=== PATIENT | male | born 1970 | race Caucasian/White ===

== ENCOUNTER 2018-01-01 13:19 | Inpatient (IN) | payer OTHER ==
[~2018-01-01] VITALS: Ht 170.2 cm; Wt 106.6 kg
[2018-01-01 13:33] VITALS: BP_SYST 148
--- NOTE | 2018-01-01 13:39 | NUR ---
Ambulatory to bed 8
--- NOTE | 2018-01-01 14:00 | NUR ---
PT AAOx4 presents to ED c/o pain to bilateral feet r/t diabetic foot ulcer. Pt states "it has gotten worse. I put cream on it, but it hasn't gone away." Swelling and redness noted to soles of bilateral feet. No other injuries/complaints per pt/noted. Will continue to monitor.
--- NOTE | 2018-01-01 14:08 | NUR ---
ER Dr. Martinez at bedside examining patient.
[2018-01-01] MEDS ORDERED: CLINDAMYCIN 600 MG in D5W 50 ML IV ONE (14:15)
[2018-01-01] MEDS ORDERED: LEVOFLOXACIN 500 MG/D5W 100 ML IV ONE ×2 (14:15→22:41)
[2018-01-01] MEDS ORDERED: NACL 0.9% IV ONE (14:15)
[2018-01-01] MEDS ORDERED: VANCOMYCIN HCL 1,000 MG in NS 250 ML IV ONE (14:15)
--- NOTE | 2018-01-01 14:15 | NUR ---
Radiology at bedside for CXR
[2018-01-01] MEDS ORDERED: CLINDAMYCIN 600 mg/50mL D5W 50 ML IV ONE (14:41)
[2018-01-01 15:01] LABS: BASOPHILS # (AUTO) 0.3 K/uL (0.0-0.2); MONOCYTES # (AUTO) 0.7 K/uL (0.0-1.0); RED BLOOD CELL COUNT(AUTO) 4.18 MIL/uL (4.2-6.2)
[2018-01-01 15:07] LABS: EOSINOPHILS # (AUTO) 0.1 K/uL (0.0-0.4); EOSINOPHILS % (AUTO) 0.5 % (0.0-4.0); HEMATOCRIT 34.9 % (36-54); HEMOGLOBIN 11.2 g/dL (14.0-18.0); LYMPHOCYTES # (AUTO) 1.3 K/uL (1.0-5.5); LYMPHOCYTES % (AUTO) 10.3 % (20.5-51.5); MEAN CORPUSCULAR HEMOGLOBIN 27 pg (27-31); MEAN CORPUSCULAR HGB CONC 32 % (32-36); MEAN CORPUSCULAR VOLUME 84 fL (79.0-98.0); MONOCYTES % (AUTO) 5.4 % (1.7-9.3); NEUTROPHILS # (AUTO) 10.7 K/uL (1.8-7.7); NEUTROPHILS % (AUTO) 81.8 % (40.0-70.0); PLATELET COUNT (AUTO) 317 K/uL (130-430); RED CELL DISTRIBUTION WIDTH 11.5 % (9.0-15.0); WHITE BLOOD COUNT (AUTO) 13.1 K/uL (4.8-10.8)
[2018-01-01 15:10] LABS: CALCIUM 9.5 mg/dL (8.4-11.0); CREATININE 0.93 mg/dL (0.55-1.30); POTASSIUM 4.6 mmol/L (3.5-5.1)
[2018-01-01 15:15] LABS: ALBUMIN 2.8 g/dL (3.4-4.8); TOTAL BILIRUBIN 0.5 mg/dL (0.0-1.0)
[2018-01-01] MEDS ORDERED: MULT-1117 PO (15:30)
[2018-01-01] MEDS ORDERED: INSU100V SQ (15:30)
[2018-01-01] MEDS ORDERED: DIF100 PO (15:30)
[2018-01-01] MEDS ORDERED: [UNRECOGNIZED DRUG - SUPPLY] IM (15:30)
[2018-01-01] MEDS ORDERED: ESCI10TA PO (15:30)
[2018-01-01] MEDS ORDERED: SILV50CR43 TP (15:30)
[2018-01-01] MEDS ORDERED: MUPIROCIN 2% TP (15:30)
[2018-01-01] MEDS ORDERED: GLU500 PO (15:30)
[2018-01-01] MEDS ORDERED: ASPI-1153 PO (15:30)
--- NOTE | 2018-01-01 15:31 | NUR ---
Medication reconciliation completed with information provided by pharmacy. Any prior medication reconciliation on file was reviewed and corrected.
--- NOTE | 2018-01-01 15:41 | NUR ---
Pt states he is allergic to Vancomycin; pt denies any immediate reaction, but states "I lose all of my white blood cells when I take it. I don't want it." Dr. Martinez notified. Vancomycin to be DC'd. Addendum: 01/01/18 at 1542 by [email or web address] *Vancomycin to be canceled.
[2018-01-01 16:09] LABS: BILIRUBIN,URINE NEGATIVE (NEGATIVE); BLOOD, URINE NEGATIVE (NEGATIVE); CLARITY/URINE CLEAR (CLEAR); COLOR,URINE YELLOW (YELLOW); GLUCOSE,URINE 3+ (NEGATIVE); KETONES,URINE 1+ (NEGATIVE); LEUKOCYTE ESTERASE ,URINE NEGATIVE (NEGATIVE); NITRITE, URINE NEGATIVE (NEGATIVE); PROTEIN URINE TRACE (NEGATIVE)
[2018-01-01 16:16] LABS: BACTERIA,URINE FEW /HPF (None Seen); HYALINE CASTS, URINE 0-10 /LPF (None Seen); MUCUS,URINE 1+ /LPF (None Seen); RBC,URINE NONE SEEN /HPF (0-3); WBC,URINE 0-3 /HPF (0-3)
--- NOTE | 2018-01-01 16:46 | NUR ---
ADMISSION NOTE Received patient from ER via leonarda, received report from KARTHIK VIRK. Patient admitted with diagnosis of OSTEOMYELITIS/ CELLULITIS. Patient oriented to hospital routine, call light, toileting and safety-patient verbalized understanding.
--- NOTE | 2018-01-01 16:57 | NUR ---
Patient will be admitted [facility]. Admitted to Medsurg unit. Will go to room 133B. Summary report printed. Report will be given at bedside.
[2018-01-01 17:08] VITALS: BP_SYST 126; BP_SYST 129
[2018-01-01] MEDS ORDERED: BUPIVACAINE /PF 0.75% 10 ML VIAL INJ ONE (17:30)
[2018-01-01] MEDS ORDERED: NS 1000 ML IV.SOLN IV ONE (17:30)
[2018-01-01] MEDS ORDERED: MIDAZOLAM HCL 5 MG/5 ML VIAL IVP ONE (17:30)
--- NOTE | 2018-01-01 17:45 | NUR ---
Rounds: Patient verbalized that he does not want any informations released to his parents. He also verbalized his frustrations and disappointments with his parents. He stated that he want to make his health his priority now.
--- NOTE | 2018-01-01 18:29 | NUR ---
Accucheck: Bloodsugar = 255mg/dl. Covered with 6 units Regular insulin SQ given on the left abomen lower quadrant. Dose was verified with another RN before administration.
--- NOTE | 2018-01-01 18:41 | NUR ---
MD notification: Informed Dr. Wolf about patient's non productive cough, new order received.
[2018-01-01 19:29] VITALS: BP_SYST 131
--- NOTE | 2018-01-01 19:29 | NUR ---
Opening Note Bedside SBAR report received from dayshift RN. Patient is resting, eyes closed with no distress noted. IV site noted to LAC 20G, infusing remainder of ER bolus. Introduced myself, updated whiteboard, discussed plan of care. Bed to lowest position, 2 upper side rails raised bilaterally, call light within reach, bed alarm not activated per patient request. Will continue to monitor patient.
--- NOTE | 2018-01-01 21:11 | NUR ---
Blood Glucose : 244 (4U regular insulin correction given per physician ordered sliding scale) Educated patient on signs/symptoms of hypoglycemia. Patient verbalizes understanding.
[2018-01-01] MEDS: INSULIN REGULAR, HUMAN 100 UNITS/ML, 10 ML VIAL (novoLIN R) SUBCUT PRN (21:14)
[2018-01-01] MEDS ORDERED: HYDROcodone/ACETAMIN 5-325 MG TAB (NORCO/ VICODIN) PO PRN (22:15)
[2018-01-01] MEDS ORDERED: ONDANSETRON HCL 4 MG/2 ML VIAL IVP PRN (22:15)
[2018-01-01] MEDS ORDERED: HYDROcodone/ACETAMIN 10-325 MG TAB PO PRN (22:15)
[2018-01-01] MEDS ORDERED: ENOXAPARIN SODIUM 40 MG/0.4 ML SYRINGE SUBCUT SCH (22:30)
--- NOTE | 2018-01-01 22:36 | NUR ---
Dr. Wolf is in with patient discussing plan of care.
[2018-01-01] MEDS ORDERED: CLINDAMYCIN 600 mg/50mL D5W 100 ML IV ONE (22:41)
[2018-01-01 22:50] VITALS: BP_SYST 132
[2018-01-01] MEDS: ACETAMINOPHEN 325 MG TABLET PO PRN (22:55)
--- NOTE | 2018-01-01 22:55 | NUR ---
Temperature: 100.8 - Administered Tylenol 650mg as ordered by physician for fever. Applied cold ice packs bilaterally to axillary. Will follow up to ensure effective temperature management.
[2018-01-01] MEDS: CLINDAMYCIN 600 MG in D5W 50 ML IV SCH (23:00)
--- NOTE | 2018-01-01 23:00 | NUR ---
Called Dr. Wolf in 's lounge and advised of patient's elevated temperature. No further orders received.
--- NOTE | 2018-01-01 23:55 | NUR ---
Temperature: 97.7 - temperature management effective, will continue to monitor patient.
[2018-01-02] VITALS (7 sets, daily range): BP systolic 115–141
--- NOTE | 2018-01-02 00:17 | NUR ---
Social Service Consult Ordered Patient says he temporarily lives with his parents. He says last time he had his toe amputated he was discharged to a convalescent home and his parents attempted to have him sign paperwork to give his rights away. He says he does not feel his parents will help him when he is discharged and he does not trust them, but has no where else to go. He is also concerned with losing his job during this hospital stay and has no resources to fall back on. He is requesting social service consult to see what they can help with. He is adamant on not going back to the convalescent facility that he was sent to for his last recovery, but cannot remember the name of the facility.
[2018-01-02] MEDS: NACL 0.9% 1,000 ML IV SCH ×4 (00:29→23:26)
[2018-01-02] MEDS: LACTOBACILLUS RHAMNOSUS GG 1 CAP CAPSULE PO SCH ×3 (00:29→20:40)
--- NOTE | 2018-01-02 01:01 | NUR ---
Wound Care Left foot Cleansed both wound sites with normal saline. Patted dry. Applied optifoam non-adhesive to both sites and securely wrapped with gauze. Patient tolerated well and did not want to be medicated before wound care.
--- NOTE | 2018-01-02 01:25 | NUR ---
IV site is leaking. New IV site started to LFA 20G and was started by admitting RN, Madi.
--- NOTE | 2018-01-02 03:45 | NUR ---
Rounds Patient is resting comfortably with eyes closed and no distress noted. No shortness of breath and no labored breathing. IV site is clean/dry/intact with no signs of infiltration, infusing NS @ 100 ml/hr. Bed to lowest position, 2 upper side rails raised bilaterally, call light within reach, bed alarm activated. Will continue to monitor patient.
[2018-01-02] MEDS ORDERED: DEXTROSE 50% JECT 50 ML DISP.SYRIN IVP PRN (04:00)
--- NOTE | 2018-01-02 05:26 | NUR ---
Rounds Patient is resting, eyes closed and but easily arouses to light stimulation. Symmetric rise and fall of chest with non-labored respirations @ 16/min. IV site is clean/dry/intact with no signs of infiltration, infusing NS @ 100 ml/hr. Bed to lowest position, 2 upper side rails raised bilaterally, call light within reach, bed alarm activated. Will continue to monitor patient.
--- NOTE | 2018-01-02 05:39 | NUR ---
CONSULTATION PAGED/CALLED Reason for Consultation: CELLULITUS Person Who was Notified: MIMI Consulting Physician: DR. MARTINEZ; ONCALL- DR. ALEJANDRE Ordering Physician: DR. ETIENNE
--- NOTE | 2018-01-02 05:40 | NUR ---
CONSULTATION PAGED/CALLED Reason for Consultation: CELLULITES Person Who was Notified: MIMI Consulting Physician: DR. DEUTSCH Ordering Physician: DR. ETIENNE
[2018-01-02] MEDS: CLINDAMYCIN 600 MG in D5W 50 ML IV SCH ×4 (05:54→23:26)
--- NOTE | 2018-01-02 05:58 | NUR ---
Blood Glucose : 118 (No correction given per physician ordered sliding scale) Educated patient on signs/symptoms of hypoglycemia. Patient verbalizes understanding
[2018-01-02 06:52] LABS: BASOPHILS # (AUTO) 0.1 K/uL (0.0-0.2); BASOPHILS % (AUTO) 0.5 % (0.0-2.0); EOSINOPHILS # (AUTO) 0.1 K/uL (0.0-0.4); EOSINOPHILS % (AUTO) 1.3 % (0.0-4.0); HEMATOCRIT 34.5 % (36-54); LYMPHOCYTES # (AUTO) 1.4 K/uL (1.0-5.5); LYMPHOCYTES % (AUTO) 13.8 % (20.5-51.5); MEAN CORPUSCULAR HEMOGLOBIN 27 pg (27-31); MEAN CORPUSCULAR HGB CONC 32 % (32-36); MEAN CORPUSCULAR VOLUME 84 fL (79.0-98.0); MONOCYTES # (AUTO) 0.5 K/uL (0.0-1.0); MONOCYTES % (AUTO) 5.2 % (1.7-9.3); NEUTROPHILS % (AUTO) 79.2 % (40.0-70.0); PLATELET COUNT (AUTO) 269 K/uL (130-430); RED BLOOD CELL COUNT(AUTO) 4.12 MIL/uL (4.2-6.2); WHITE BLOOD COUNT (AUTO) 10.1 K/uL (4.8-10.8)
--- NOTE | 2018-01-02 07:20 | NUR ---
Closing Note Gave bedside sbar report to dayshift RNEl Patient is awake/alert/oriented, using telephone No distress noted at this time. Introduced patient to dayshift RN. All needs/expectations/interventions met by nightshift RN. Transfer of care successful.
[2018-01-02 07:21] LABS: INR 1.2 (0.80-1.20); PROTHROMBIN TIME 11.9 SECS (9.5-12.5)
[2018-01-02 07:34] LABS: ALBUMIN 2.4 g/dL (3.4-4.8); CALCIUM 9.1 mg/dL (8.4-11.0); CREATININE 0.77 mg/dL (0.55-1.30); FREE T4 (FREE THYROXINE) 0.8 ng/dL (0.6-1.6); POTASSIUM 4.1 mmol/L (3.5-5.1); THYROID STIMULATING HORMONE 0.75 uIu/mL (0.34-4.82); TOTAL BILIRUBIN 0.4 mg/dL (0.0-1.0)
[2018-01-02] MEDS: CITALOPRAM HYDROBROMIDE 20 MG TABLET PO SCH ×3 (09:00→09:13)
[2018-01-02] MEDS ORDERED: metFORMIN HCL 500 MG TABLET PO SCH (09:00)
[2018-01-02] MEDS: MULTIVITAMINS TAB 1 TABLET PO SCH (09:06)
[2018-01-02] MEDS: ASPIRIN 81 MG TABLET(ECOTRIN) PO SCH (09:07)
[2018-01-02] MEDS: metFORMIN HCL 500 MG TABLET PO SCH ×2 (09:07→17:19)
--- NOTE | 2018-01-02 09:10 | NUR ---
AM NOTES Patient awake, alert, orientedx4 laying in bed. No s/s of acute distress or SOB. No pain reported. Patient states he feels worried about "his parents wanting to sign his rights away" and wants to speak with social studies teacher. Patient oriented to room routine, bed in lowest position, call light within reach. Will cont. to monitor.
--- NOTE | 2018-01-02 09:45 | NUR ---
Dr. Wolf rounds assessed patient and beside, informed patient about plan of care and xray results, infection to the bone of his foot, patient very concerned about possible toe amputation, Dr. Wolf informed patient that the orthopaedic physician will be coming to see him and give him final say about amputation if needed, patient verbalized understanding.
--- NOTE | 2018-01-02 10:00 | NUR ---
Called Case Management patient has some concerns regarding insurance and discharge planning.
--- NOTE | 2018-01-02 10:05 | NUR ---
Psych consult called: for Dr. Argueta (Dr. Harris unit control clerk for weekend), regarding depression, ordered by Dr. Wolf, called exchange. Face sheet faxed to office at [phone]
[2018-01-02] MEDS: ACETAMINOPHEN 325 MG TABLET PO PRN (11:38)
[2018-01-02] MEDS: guaiFENesin/DEXTROMETHORPHAN 118 ML PO PRN ×2 (11:39→18:54)
[2018-01-02] MEDS: INSULIN REGULAR, HUMAN 100 UNITS/ML, 10 ML VIAL (novoLIN R) SUBCUT PRN ×2 (11:42→17:19)
--- NOTE | 2018-01-02 11:46 | NUR ---
FEVER Patient has a temperature of 101.9. Tylenol administered, cooling measures applied. Will cont. to monitor.
[2018-01-02] MEDS ORDERED: LORazepam 1 MG TABLET PO PRN (12:15)
--- NOTE | 2018-01-02 12:19 | NUR ---
MORNING MEDICATIONS Patient refused Celexa. Patient educated on indications, side effects and benefits of medication, patient verbalized understanding.
--- NOTE | 2018-01-02 13:11 | NUR ---
SEPSIS Patient meets SIRS criteria for sepsis (pulse in 120's, fever of 101.0, tylenol given, fever increased to 103.0.) Dr. Aguirre at nurses station informed of patient's status. Dr. Aguirre to place orders. Dr. Wolf notfied, no change in orders. Will cont. to monitor.
--- NOTE | 2018-01-02 13:45 | NUR ---
RN rounds/Temp re-check patient resting in bed, family at bedside, re-checked patient's temperature now 100.5, patient does not want cooling measures as offered, patient is in stable condition, bed in lowest position, two side rails up, call light within reach, fall and aspiration precautions in place.
--- NOTE | 2018-01-02 14:06 | NUR ---
PSYCH CONSULT Dr. Harris at bedside.
--- NOTE | 2018-01-02 14:36 | NUR ---
ANXIOUS Ativan 1mg PO given for anxiousness. Will cont. to monitor.
--- NOTE | 2018-01-02 14:56 | NUR ---
WOUND CARE Wound care done on bilateral feet. Patient tolerated procedure well.
[2018-01-02] MEDS ORDERED: LEVOFLOXACIN 500 MG/D5W 100 ML IV SCH ×2 (16:00→21:00)
[2018-01-02] MEDS: PIPERACILLIN/TAZO 2.25G/DEX-IS 50 ML IV SCH ×2 (18:07→23:26)
--- NOTE | 2018-01-02 18:10 | NUR ---
MEDICATION ADMINISTRATION Accucheck 241, 4 units of insulin given for correction needed per physician ordered sliding scale. IVPB antibiotics hung, left 20g IV site patent, intact, dressing is dry. Patient educated on indication, side effects and benefits of antibiotic therapy, patient verbalized understanding. Will cont. to monitor.
--- NOTE | 2018-01-02 18:35 | NUR ---
CLOSING NOTES Patient is laying in bed resting. No s/s of distress or SOB noted. No pain reported. All needs met throughout shift. Safety and fall precautions maintained. Left 20g IV site patent, intact, dressing is dry. Bed in lowest position, call light within reach. Will endorse to oncoming RN.
--- NOTE | 2018-01-02 19:14 | NUR ---
Opening Note Bedside SBAR report received from [place] RN. Patient is resting, eyes closed with no distress noted. No IV site to assess at this time, per sherita RN it dislodged as patient attempted to get out of bed. Introduced myself, updated whiteboard, discussed plan of care. Bed to lowest position, 2 upper side rails raised bilaterally, call light within reach, bed alarm not activated per patient request. Will continue to monitor patient.
--- NOTE | 2018-01-02 20:40 | NUR ---
Pain Medication Patient complains of 7/10 aching bilat foot pain. Administered Cope 10mg as ordered for severe pain. Will follow up to ensure effective pain management.
[2018-01-02] MEDS: ENOXAPARIN SODIUM 40 MG/0.4 ML SYRINGE SUBCUT SCH (20:41)
--- NOTE | 2018-01-02 20:44 | NUR ---
Blood Glucose : 126 (No correction given per physician ordered sliding scale) Educated patient on signs/symptoms of hypoglycemia. Patient verbalizes understanding.
--- NOTE | 2018-01-02 22:20 | NUR ---
Rounds Patient is awake/alert/oriented, watching television. Symmetric rise and fall of chest with non-labored respirations @ 16/min. IV site is clean/dry/intact with no signs of infiltration, infusing NS @ 100 ml/hr. Bed to lowest position, 2 upper side rails raised bilaterally, call light within reach, bed alarm activated. Will continue to monitor patient.
[2018-01-03 01:25] VITALS: BP_SYST 110
--- NOTE | 2018-01-03 02:59 | NUR ---
Rounds Patient is resting, eyes closed and but easily arouses to light stimulation. Symmetric rise and fall of chest with his respirations @ 18/min. IV site is clean/dry/intact with no signs of infiltration, infusing NS @ 100 ml/hr as ordered. Bed to lowest position, 2 upper side rails raised bilaterally, call light within reach, bed alarm activated. Will continue to monitor patient.
--- NOTE | 2018-01-03 04:27 | NUR ---
Rounds Patient is resting comfortably with eyes closed and no distress noted. No shortness of breath and no labored breathing. IV site is clean/dry/intact with no signs of infiltration, infusing NS @ 100 ml/hr as ordered. Patency verified with good blood return/flush. Bed to lowest position, 2 upper side rails raised bilaterally, call light within reach, bed alarm activated. Will continue to monitor patient.
[2018-01-03] MEDS: CLINDAMYCIN 600 MG in D5W 50 ML IV SCH ×4 (05:30→23:52)
[2018-01-03] MEDS: PIPERACILLIN/TAZO 2.25G/DEX-IS 50 ML IV SCH ×3 (05:30→17:55)
[2018-01-03] MEDS: NACL 0.9% 1,000 ML IV SCH ×3 (05:30→23:52)
[2018-01-03] MEDS: INSULIN REGULAR, HUMAN 100 UNITS/ML, 10 ML VIAL (novoLIN R) SUBCUT PRN ×4 (06:00→21:48)
--- NOTE | 2018-01-03 06:01 | NUR ---
Blood Glucose : 180 (4U regular insulin correction given per physician ordered sliding scale) Educated patient on signs/symptoms of hypoglycemia. Patient verbalizes understanding. Addendum: 01/03/18 at 0605 by Marie Tinsley RN 2U administered per correction scale
[2018-01-03] MEDS: guaiFENesin/DEXTROMETHORPHAN 118 ML PO PRN (06:26)
--- NOTE | 2018-01-03 06:26 | NUR ---
Patient complains of cough, administered Robitussin as ordered for cough. Will follow up to ensure effective management.
--- NOTE | 2018-01-03 07:10 | NUR ---
Closing Note Patient is awake/alert/oriented No distress noted at this time. All needs/expectations/interventions met by nightshift RN. Transfer of care successful.
[2018-01-03 07:11] LABS: BASOPHILS % (AUTO) 0.6 % (0.0-2.0); EOSINOPHILS # (AUTO) 0.1 K/uL (0.0-0.4); EOSINOPHILS % (AUTO) 1.8 % (0.0-4.0); HEMATOCRIT 29.6 % (36-54); LYMPHOCYTES # (AUTO) 1.3 K/uL (1.0-5.5); LYMPHOCYTES % (AUTO) 20.4 % (20.5-51.5); MEAN CORPUSCULAR HEMOGLOBIN 26 pg (27-31); MEAN CORPUSCULAR HGB CONC 30 % (32-36); MEAN CORPUSCULAR VOLUME 85 fL (79.0-98.0); MONOCYTES # (AUTO) 0.5 K/uL (0.0-1.0); MONOCYTES % (AUTO) 8.8 % (1.7-9.3); NEUTROPHILS # (AUTO) 4.2 K/uL (1.8-7.7); NEUTROPHILS % (AUTO) 68.4 % (40.0-70.0); PLATELET COUNT (AUTO) 245 K/uL (130-430); RED CELL DISTRIBUTION WIDTH 11.9 % (9.0-15.0); WHITE BLOOD COUNT (AUTO) 6.1 K/uL (4.8-10.8)
[2018-01-03 07:51] LABS: CALCIUM 8.5 mg/dL (8.4-11.0); CREATININE 0.92 mg/dL (0.55-1.30); POTASSIUM 3.6 mmol/L (3.5-5.1)
[2018-01-03 08:00] VITALS: BP_SYST 117
--- NOTE | 2018-01-03 08:00 | NUR ---
Initial notes: Patient awake, alert and oriented. Stable. Discussed plan of care. I.V. access patent running on NACL 100 cc/hr. Discussed plan of care. Safety measures in placed. Call light within reach. report received at bedside.
[2018-01-03] MEDS: metFORMIN HCL 500 MG TABLET PO SCH ×2 (08:37→17:54)
[2018-01-03] MEDS: ASPIRIN 81 MG TABLET(ECOTRIN) PO SCH (08:37)
[2018-01-03] MEDS: MULTIVITAMINS TAB 1 TABLET PO SCH (08:38)
[2018-01-03] MEDS: CITALOPRAM HYDROBROMIDE 20 MG TABLET PO SCH (08:38)
[2018-01-03] MEDS: LACTOBACILLUS RHAMNOSUS GG 1 CAP CAPSULE PO SCH ×2 (08:38→21:30)
--- NOTE | 2018-01-03 08:44 | NUR ---
ROUNDS: Patient very talkative. Refused citalopram and hydroxyzine pamoate. He said "he doesn't need it."
--- NOTE | 2018-01-03 12:17 | NUR ---
rounds: patient had a visitors, he was talking to them. no distress noted.
[2018-01-03 12:20] VITALS: BP_SYST 125
--- NOTE | 2018-01-03 13:40 | NUR ---
rounds: patient resting. no distress noted.
--- NOTE | 2018-01-03 15:36 | NUR ---
CONSULTATION FOLLOW-UP REASON FOR CONSULTATION:CELLULITIS WAS CONSULT CALLED?:Y PERSON WHO WASA NOTIFIED:PAO CONSULTING PHYSICIAN:DESHAUN RUVALCABA PLASTIC MAKER SPECIALTY:ORTHO PLASTIC MAKER PHONE NUMBER:[phone] REQUESTING PHYSICIAN:JAMES MURO
--- NOTE | 2018-01-03 16:35 | NUR ---
Renetta mendoza: Seen by Dr. Vilchis. Explained to the patient the I & D procedure. Addendum: 01/03/18 at 1920 by Berkley Ramos RN Patient wants to sign the consent tomorrow.
[2018-01-03 16:41] VITALS: BP_SYST 136
--- NOTE | 2018-01-03 17:59 | NUR ---
PAGED PAGED KAMERON JIMENEZ AT [phone] SPOKE WITH EDEN.
--- NOTE | 2018-01-03 18:00 | NUR ---
MRSA: Informed patient the result of the wound culture. He signed the MRSA form and he will be placed on isolation, contact precaution.
--- NOTE | 2018-01-03 19:20 | NUR ---
Closing notes: Patient sleeping. Stable. Needs attended. Safety measures in placed. Call light within reach. Report will be given to balance screwhead polisher nurse.
--- NOTE | 2018-01-03 19:45 | NUR ---
OPENING NOTES Pt and endorsement received from day shift nurse. Pt is AAOx4, lying in bed. Father Dwight at bedside. No complains of pain at this time and no signs of acute distress noted. Call light with pt, bed alarm on and at its lowest level. Will continue to monitor.
[2018-01-03 20:00] VITALS: BP_SYST 122
[2018-01-03] MEDS: ENOXAPARIN SODIUM 40 MG/0.4 ML SYRINGE SUBCUT SCH (21:32)
--- NOTE | 2018-01-03 22:25 | NUR ---
PRIVACY REQUEST Per pt's request, he asked that we don't give any health information to his mother. Will inform other staff regarding pt's request.
[2018-01-04] MEDS: PIPERACILLIN/TAZO 2.25G/DEX-IS 50 ML IV SCH ×2 (00:13→06:19)
--- NOTE | 2018-01-04 00:53 | NUR ---
MRSA SCREEN MRSA Screen of the nares collected and sent to the lab.
--- NOTE | 2018-01-04 02:40 | NUR ---
RESTING Pt is resting in bed with both eyes closed. With visible chest rise and fall noted. No signs of acute distress at this time. Safety precautions in place and call light with pt. Will continue to monitor.
--- NOTE | 2018-01-04 04:49 | NUR ---
RESTING Pt is resting in bed with both eyes closed. With visible chest rise and fall noted. No signs of any acute distress or SOB at this time. Safety precautions in place and call light with pt. Will continue to monitor.
[2018-01-04] MEDS: CLINDAMYCIN 600 MG in D5W 50 ML IV SCH ×4 (05:06→23:18)
[2018-01-04] MEDS: INSULIN REGULAR, HUMAN 100 UNITS/ML, 10 ML VIAL (novoLIN R) SUBCUT PRN ×2 (06:26→21:37)
--- NOTE | 2018-01-04 06:54 | NUR ---
CLOSING NOTES Pt is resting in bed with both eyes closed. With visible chest rise and fall noted. No complains of pain or discomfort at this time. No signs of acute distress noted. All needs attended throughout the shift. Will endorse to day shift nurse.
[2018-01-04] MEDS: metFORMIN HCL 500 MG TABLET PO SCH ×2 (08:00→18:00)
--- NOTE | 2018-01-04 08:10 | NUR ---
AM ROUNDS: ON CONTACT ISOLATION PRECAUTION FOR MRSA OF RIGHT FOOT WOUND.NPO AFTER BREAKFAST,INSTRUCTIONS GIVEN,FOR INCISION AND DEBRIDEMENT OF RIGHT FOOT ULCERS ORDERED ,PATIENT UNDERSTAND IT. PRE OP CHECK LIST STARTED BY NIGHT NURSE.RIGHT FOREARM IVF IN PLACED. REPORT GIVEN BY NIGHT NURSE VALENTINA.STABLE THIS TIME.
[2018-01-04 09:00] VITALS: BP_SYST 117
[2018-01-04] MEDS: MULTIVITAMINS TAB 1 TABLET PO SCH (09:00)
[2018-01-04] MEDS: CITALOPRAM HYDROBROMIDE 20 MG TABLET PO SCH (09:00)
[2018-01-04] MEDS: ASPIRIN 81 MG TABLET(ECOTRIN) PO SCH (09:00)
--- NOTE | 2018-01-04 11:30 | NUR ---
BLOOD SUGAR: BLOOD SUGAR TAKEN,NO INSULIN GIVEN PER SLIDING SCALE,PATIENT NOTHING BY MOUTH.FOR SURGERY THIS AFTERNOON ORDERED. NO DISTRESS.
[2018-01-04 12:17] VITALS: BP_SYST 117
[2018-01-04] MEDS: NACL 0.9% 1,000 ML IV SCH ×2 (12:54→21:23)
[2018-01-04] MEDS ORDERED: VANCOMYCIN HCL 2,000 MG in NS 500 ML IV ONE (13:00)
--- NOTE | 2018-01-04 14:30 | NUR ---
RN ROUNDS: TALKING ON THE PHONE WITH FAMILY. PATIENT SIGNED CONSENT FOR INCISION AND DEBRIDEMENT OF RIGHT FOOT ULCERS. STABLE.
--- NOTE | 2018-01-04 15:20 | NUR ---
RN ROUNDS: STABLE. RESTING. SPOKE WITH DR ALEJANDRE,WILL COME TO SEE PATIENT AND TIME OF SURGERY TO FOLLOW. NPO MAINTAINED.
--- NOTE | 2018-01-04 15:49 | NUR ---
Dietitian Recommendations *Recommend [facility] diet w/ Toi BID when medically appropriate. Please see Nutritional Assessment for details. PERRY BHAKTA
--- NOTE | 2018-01-04 16:02 | NUR ---
Discharge Planning: Pt has orders for dc planning to SNF; Hearing Impaired Itinerant Teacher has obtained contracted list of SNFs from pt's insurance. Pt can go to: [facility], [facility], [facility], [facility], and [facility]. PIPE FITTER WELDING has faxed referrals to: [facility] ([phone] f.[phone]), [facility] ([phone] [phone]), and [facility] ([phone] [phone]). PIPE FITTER WELDING or DC Sugar Cane Farm Manager will follow up on SNF placement.
--- NOTE | 2018-01-04 16:05 | NUR ---
Wound evaluation attempted: Case management working with patient. Will try again later today.
--- NOTE | 2018-01-04 16:16 | NUR ---
DC PLANNING Order for dc planning SNF. Called & spoke w Janey @ [facility], ph [phone] fax [phone], informed of order. States closest contracted SNF's: [facility], [facility] ph [phone], [facility], [facility], [facility], [facility], [facility] [place] ph [phone]. Ambulance would have to go thru [facility]. Spoke w pt @ bedside, gave list of contracted SNF's, agreeable w snf for short term care only.
--- NOTE | 2018-01-04 16:30 | NUR ---
WOUND EVALUATION: Wound Consult received from Dr. Wolf. Thank you, Dr. Wolf, for the consult. Patient received in a Felicity Bed with an IsoFlex YANIRA mattress, awake, alert, and oriented. Patient is able to turn in bed independently. Tommy Score is a 20. Past Medical History: Diabetes mellitus type 2, depression, left great toe amputation. Recent Labs: WBC 6.1, RBC 3.50, hemoglobin 9.0, hematocrit 29.6, ESR 87, POC glucose 215, albumin 2.4. Microbiology: Blood culture results 2 in progress. Wound culture results positive for MRSA and Streptococcus viridans. MRSA screen results in progress. Intrinsic factors that delay wound healing: Diabetes mellitus, hypoalbuminemia. Extrinsic factors that delay wound healing: Decreased mobility. Wound Assessment: 1. Right medial great toe: Diabetic/neuropathic ulcer, present on admission. Wound bed has 50% white tissue, 45% dark red tissue, 5% black tissue. Mild odor, scant sanguineous drainage. Periwound callused. Erythematous tissue surrounding wound bed. Wound measures 0.9 cm x 2.0 cm. Recommend: Cleanse wound with normal saline. Place moisture barrier cream onto tangela-wound. Apply Venelex ointment onto wound bed. Cover with foam dressing. Wrap with Marcia wrap. Perform wound care daily, and as needed for dressing soiling or dislodgement. 2. Right medial foot: Diabetic/neuropathic ulcer, present on admission. Wound bed has 100% white tissue. Foul odor, small sanguinopurulent drainage. Periwound callused. Erythematous tissue surrounding wound bed. Soft macerated tissue present, soft feel under wound bed. Wound measures 1.0 cm x 3.0 cm x 0.6 cm. Recommend: Cleanse wound with normal saline. Place moisture barrier cream onto tangela-wound. Apply Venelex ointment onto wound bed. Pack wound with 1/4 inch iodoform packing strip. Cover with foam dressing. Wrap with Marcia wrap. Perform wound care daily, and as needed for dressing soiling or dislodgement. Also recommend: Encourage and assist patient as needed with repositioning every 2 hours with pillow support and off-load pressure areas with pillows for pressure re-distribution. Offload, elevate and float bilateral heels with pillows. Perform skin care and monitor skin integrity Q shift. Dr. Murray is on surgical consult, and is planning on surgical debridement today.
[2018-01-04 16:52] VITALS: BP_SYST 124
--- NOTE | 2018-01-04 17:00 | NUR ---
BLOOD SUGAR: BLOOD SUGAR TAKEN,NO INSULIN COVERAGE NEEDED,NOTHING BY MOUTH. NO COMPLAINED MADE.
--- NOTE | 2018-01-04 17:30 | NUR ---
TO OR: TO OR PER COURTNEY BY OR STAFF NURSE MARINE/UMAIR IN STABLE CONDITION. PRE OP CHECK LIST DONE. CHG DONE BY WIPING RAG WASHER 1 HOUR PRIOR TO SURGERY. PHONE,WALLET WITH DEBIT CARD X1 ,MIMS $8ONLY GIVEN TO NURSING ORACLE SOLUTIONS ARCHITECT
[2018-01-04] MEDS ORDERED: ONDANSETRON HCL 4 MG/2 ML VIAL IVP PRN (18:15)
[2018-01-04] MEDS ORDERED: POLYMYXIN 500,000/BACIT.10,000 UNITS in NS IRR 1 L IR ONE (18:15)
[2018-01-04] MEDS ORDERED: fentaNYL CITRATE/PF 100 MCG/2 ML AMP IVP PRN ×2 (18:15)
--- NOTE | 2018-01-04 19:21 | NUR ---
OPENING NOTE PT RETURNING TO UNIT FROM OR. PT IS AWAKE AND ALERT AT THIS TIME. PT IS ON ROOM AIR. PT DENIES PAIN AT THIS TIME. IV IS INTACT AND RUNNING IVF PER ORDERS. PATIENT IS ABLE TO MOVE AFFECTED EXTREMITY. CAPILLARY REFILL IS WITHIN NORMAL LIMITS. PT DENIES NUMBNESS OR TINGLING. FALL AND SAFETY PRECAUTIONS IN PLACE. BED LOCKED IN LOWEST POSITION. CALL LIGHT WITH PT. WILL CONTINUE TO MONITOR.
[2018-01-04 20:00] VITALS: BP_SYST 129
[2018-01-04] MEDS: ENOXAPARIN SODIUM 40 MG/0.4 ML SYRINGE SUBCUT SCH (21:00)
[2018-01-04] MEDS: LACTOBACILLUS RHAMNOSUS GG 1 CAP CAPSULE PO SCH (21:19)
[2018-01-04] MEDS: guaiFENesin/DEXTROMETHORPHAN 118 ML PO PRN (21:20)
--- NOTE | 2018-01-04 21:23 | NUR ---
MEDICATION ADMINISTRATION/ BS ADMINISTERED MEDICATION PER ORDERS. BLOOD SUGAR READING OF 194. COVERAGE ADMINISTERED PER ORDERS. PROVIDED PT WITH SNACKS. PT REFUSED LOVENOX DESPITE EDUCATION. ADMINISTERED PRN COUGH MEDICATION. WILL CONTINUE TO MONITOR.
--- NOTE | 2018-01-04 23:20 | NUR ---
IV ABX ADMINISTERED IV ABX PER ORDERS. PT SLEEPING IN BED. NO NEEDS AT THIS TIME. WILL CONTINUE TO MONITOR.
[2018-01-05] VITALS: BP_SYST 103
[2018-01-05] MEDS: VANCOMYCIN HCL 1,750 MG in NS 500 ML IV SCH ×2 (00:05→13:06)
--- NOTE | 2018-01-05 00:09 | NUR ---
IV ABX ADMINISTERED IV ABX PER ORDERS. PT RESTING IN BED. VEHICLE CHECK IN CLERK AT BEDSIDE. WILL CONTINUE TO MONITOR. CALL LIGHT WITH PT.
--- NOTE | 2018-01-05 00:59 | NUR ---
BRACE REFUSAL PT REFUSES BRACE WHILE SLEEPING. DESPITE EDUCATION. Addendum: 01/05/18 at 0542 by Felicia Mckeon RN PT ALSO REFUSES HEATING PAD.
--- NOTE | 2018-01-05 02:41 | NUR ---
ROUNDING NOTE PT IS SLEEPING IN BED. NO S/S OF DISTRESS OR DISCOMFORT. CALL LIGHT WITH PT. IV ABX RUNNING PER ORDERS. WILL CONTINUE TO MONITOR.
--- NOTE | 2018-01-05 04:20 | NUR ---
ROUNDING NOTE PT STANDING TO USE URINAL. 700 ML OF URINE EMPTIED. NO OTHER NEEDS. WILL CONTINUE TO MONITOR.
[2018-01-05] MEDS: CLINDAMYCIN 600 MG in D5W 50 ML IV SCH ×4 (05:20→23:23)
--- NOTE | 2018-01-05 05:20 | NUR ---
IV ABX ADMINISTERED IV ABX PER ORDERS. NO OTHER NEEDS AT THIS TIME. WILL CONTINUE TO MONITOR.
--- NOTE | 2018-01-05 06:02 | NUR ---
BLOOD SUGAR BLOOD SUGAR READING OF 165. COVERAGE GIVEN PER SLIDING SCALE. PROVIDED PT WITH SNACKS PER REQUEST. CALL LIGHT WITH PT. WILL CONTINUE TO MONITOR.
[2018-01-05] MEDS: INSULIN REGULAR, HUMAN 100 UNITS/ML, 10 ML VIAL (novoLIN R) SUBCUT PRN ×4 (06:04→21:15)
--- NOTE | 2018-01-05 06:49 | NUR ---
CLOSING NOTE WILL ENDORSE CARE AND REPORT TO DAY SHIFT. PT CURRENTLY SLEEPING IN BED. PT IN STABLE CONDITION. ALL NEEDS MET THROUGHOUT SHIFT. NO SIGNIFICANT CHANGES TO NOTE DURING SHIFT. IVF RUNNING PER ORDERS. FALL AND SAFETY PRECAUTIONS MAINTAINED. CONTACT ISOLATION MAINTAINED. CALL LIGHT WITH PT. WILL CONTINUE TO MONITOR.
[2018-01-05 07:25] LABS: BASOPHILS # (AUTO) 0.1 K/uL (0.0-0.2); EOSINOPHILS # (AUTO) 0.2 K/uL (0.0-0.4); EOSINOPHILS % (AUTO) 2.6 % (0.0-4.0); HEMATOCRIT 30.1 % (36-54); HEMOGLOBIN 9.7 g/dL (14.0-18.0); LYMPHOCYTES # (AUTO) 1.3 K/uL (1.0-5.5); LYMPHOCYTES % (AUTO) 19.3 % (20.5-51.5); MEAN CORPUSCULAR HEMOGLOBIN 27 pg (27-31); MEAN CORPUSCULAR HGB CONC 32 % (32-36); MEAN CORPUSCULAR VOLUME 84 fL (79.0-98.0); MONOCYTES # (AUTO) 0.7 K/uL (0.0-1.0); MONOCYTES % (AUTO) 10.2 % (1.7-9.3); NEUTROPHILS # (AUTO) 4.7 K/uL (1.8-7.7); NEUTROPHILS % (AUTO) 66.9 % (40.0-70.0); PLATELET COUNT (AUTO) 269 K/uL (130-430); RED BLOOD CELL COUNT(AUTO) 3.57 MIL/uL (4.2-6.2); RED CELL DISTRIBUTION WIDTH 11.7 % (9.0-15.0)
[2018-01-05 07:26] LABS: ALBUMIN 2.1 g/dL (3.4-4.8); CALCIUM 8.8 mg/dL (8.4-11.0); CREATININE 0.83 mg/dL (0.55-1.30); POTASSIUM 4.5 mmol/L (3.5-5.1); TOTAL BILIRUBIN 0.2 mg/dL (0.0-1.0)
--- NOTE | 2018-01-05 08:00 | NUR ---
opening note patient is resting in bed, talking on the phone asked to come back later, no other needs at this time, bed at the lowest position, bed alarm on, two side rails up, call light within reach, fall and aspiration precautions in place.
[2018-01-05] MEDS: CITALOPRAM HYDROBROMIDE 20 MG TABLET PO SCH ×2 (09:00→09:25)
[2018-01-05] MEDS: BALSAM PERU/CASTOR OIL 60 GM OINT...G. TP SCH (09:00)
[2018-01-05] MEDS: ASPIRIN 81 MG TABLET(ECOTRIN) PO SCH (09:25)
[2018-01-05] MEDS: LACTOBACILLUS RHAMNOSUS GG 1 CAP CAPSULE PO SCH ×2 (09:25→21:04)
[2018-01-05] MEDS: metFORMIN HCL 500 MG TABLET PO SCH ×2 (09:25→17:46)
[2018-01-05] MEDS: MULTIVITAMINS TAB 1 TABLET PO SCH (09:25)
--- NOTE | 2018-01-05 09:25 | NUR ---
Medication patient is resting in bed, educated on medication use and side effects, patient verbalized understanding and tolerated well, changed primary tubing line and normal saline bad, no other needs at this time, bed at the lowest position, bed alarm on, two side rails up, call light within reach, fall and aspiration precautions in place. Addendum: 01/05/18 at 1413 by Doris Duffy RN assessment 0925 A&Ox4, assessment completed, educated superintendent radio communications light system and plan of care, patient verbalized understanding.
--- NOTE | 2018-01-05 10:36 | NUR ---
Nutrition Note Nutrition Consult received for Diabetic/Neuropathic Ulcers on 01/04/18 7876. Pt was seen for initial visit on 01/04/18. Please refer to Nutrition Assessment for details.
[2018-01-05] MEDS: NACL 0.9% 1,000 ML IV SCH ×2 (11:45→21:00)
--- NOTE | 2018-01-05 11:45 | NUR ---
Medication patient is resting in bed, educated on medication use and side effects, patient verbalized understanding and tolerated well, no other needs at this time, bed at the lowest position, bed alarm on, two side rails up, call light within reach, fall and aspiration precautions in place.
--- NOTE | 2018-01-05 12:31 | NUR ---
Discharge Planning: DCP spoke to Valentina ([phone]) at [facility] (f [phone] p [phone]) pt accepted to room 101B. CM is getting authorization from insurance. Addendum: 01/05/18 at 1632 by Sayra Hickman DP DCP called Agata (f [phone] Lynda Toth @ [phone]); Lynda gave authorization #[id number] for professional. Faxed order to Ayse at [facility] 9f [phone]-, f [phone], p [phone]); to receive authorization for SNF and transportation. DCP to follow.
[2018-01-05 12:42] VITALS: BP_SYST 131
[2018-01-05 14:18] VITALS: BP_SYST 131
--- NOTE | 2018-01-05 14:47 | NUR ---
DC PLANNING Per david Colbert regional planner, pt accepted @ [facility] in [place] pending auth. Called & left [facility] w Janey @ [place], ph [phone], that need auth for SNF. Later in afternoon spoke w Dr Wolf in [place] [facility] station & states dc to snf today. Spoke w pt @ bedside, agreeable w dc to SNF [facility] today. Addendum: 01/05/18 at 1626 by Iva Ambrocio RN Per Agata Colbert stating need auth from [facility] for SNF & ambulance. Called & spoke w Ayse @ [facility], ph [phone] opt 4, states to fax order/face sheet to [phone] or fax [phone], & someone will call back. States no direct ph# would have to call the same # again & ask for assistance. Updated Sayra.
--- NOTE | 2018-01-05 16:31 | NUR ---
Medication patient is resting in bed, visitor at the bedside, educated on medication use and side effects, patient verbalized understanding and tolerated well, no other needs at this time, bed at the lowest position, bed alarm on, two side rails up, call light within reach, fall and aspiration precautions in place.
[2018-01-05 16:45] VITALS: BP_SYST 139
--- NOTE | 2018-01-05 18:40 | NUR ---
closing note patient is resting in bed, all needs met for the shift, will endorse report to noc shift nurse, no other needs at this time, IV line patent and intact, bed at the lowest position, bed alarm on, two side rails up, call light within reach, fall and aspiration precautions in place.
--- NOTE | 2018-01-05 19:15 | NUR ---
OPENING NOTE Received report from Doris/El. Patient resting in bed awake, alert, oriented x4. Breathing unlabored and even on room air. No signs of distress, no needs at this time. Fall, safety, and contact precautions in place. Bed in lowest position, brake on, call light within reach. IVF infusing as ordered. Will continue to monitor.
[2018-01-05 20:00] VITALS: BP_SYST 117
[2018-01-05] MEDS: ENOXAPARIN SODIUM 40 MG/0.4 ML SYRINGE SUBCUT SCH (21:00)
[2018-01-05] MEDS: MUPIROCIN 2% TOPICAL OINTMENT 22 GM NS SCH (21:04)
--- NOTE | 2018-01-05 21:19 | NUR ---
Med pass. Blood sugar 175. Administered 2 units of regular insulin SQ per PRN insulin sliding scale. Patient refused lovenox.
--- NOTE | 2018-01-05 23:25 | NUR ---
IV abx hung
[2018-01-06] VITALS (7 sets, daily range): BP systolic 108–125
[2018-01-06] MEDS: VANCOMYCIN HCL 1,750 MG in NS 500 ML IV SCH ×2 (00:14→12:13)
--- NOTE | 2018-01-06 00:16 | NUR ---
IV abx hung
--- NOTE | 2018-01-06 01:03 | NUR ---
Patient resting in bed with eyes closed. Breathing unlabored and even on room air. No signs of distress, no needs at this time. Fall, safety, and contact precautions in place. Bed in lowest position, brake on, call light within reach. IVF infusing as ordered. Will continue to monitor.
[2018-01-06] MEDS: NACL 0.9% 1,000 ML IV SCH ×2 (03:30→12:29)
[2018-01-06] MEDS: CLINDAMYCIN 600 MG in D5W 50 ML IV SCH ×3 (06:25→17:19)
[2018-01-06] MEDS: INSULIN REGULAR, HUMAN 100 UNITS/ML, 10 ML VIAL (novoLIN R) SUBCUT PRN ×4 (06:27→21:56)
--- NOTE | 2018-01-06 06:30 | NUR ---
IV abx hung. Blood sugar 142. No insulin coverage needed.
--- NOTE | 2018-01-06 07:50 | NUR ---
INITIAL NOTE RECEIVED PATIENT FROM ALLIED HEALTH INSTRUCTOR. PATIENT IS AWAKE, ALERT AND ORIENTED. NO C/O PAIN AT THIS TIME. ROOM AIR. NO ACUTE DISTRESS. NO SOB. RESPIRATION EVEN AND UNLABORED. SKIN WARM AND DRY TO TOUCH. IV INTACT AND PATENT. BRENNA IV FLUID ORDERED. PATIENT WITH DRESSING TO RIGHT FOOT NOTED WITH DRY DRAINAGE ON DRESSING; PATIENT DENIES PAIN. BED IN LOW AND LOCKED POSITION. SIDERAIL UPX2. PATIENT REF BED ALARM. ALL NEEDS MET. DISCUSSED PLAN OF CARE WITH PATIENT; WILL FOLLOW UP WITH CASE MANAGEMENT WITH DISCHARGE PLANNINGS, PATIENT VERBALIZED UNDERSTANDING. CALL LIGHT IN REACH. CONT TO MONITOR
--- NOTE | 2018-01-06 07:54 | NUR ---
CLOSING NOTE Gave report to Adilene. Patient resting in bed awake, alert, oriented x4. Breathing unlabored and even on room air. No signs of distress, no needs at this time. Fall, safety, and contact precautions in place. Bed in lowest position, brake on, call light within reach. IVF infusing as ordered. Endorsed care to day shift nurse.
[2018-01-06] MEDS: MULTIVITAMINS TAB 1 TABLET PO SCH (08:47)
[2018-01-06] MEDS: LACTOBACILLUS RHAMNOSUS GG 1 CAP CAPSULE PO SCH ×2 (08:47→21:54)
[2018-01-06] MEDS: BALSAM PERU/CASTOR OIL 60 GM OINT...G. TP SCH (08:48)
[2018-01-06] MEDS: ASPIRIN 81 MG TABLET(ECOTRIN) PO SCH (08:48)
[2018-01-06] MEDS: CITALOPRAM HYDROBROMIDE 20 MG TABLET PO SCH (08:48)
[2018-01-06] MEDS: metFORMIN HCL 500 MG TABLET PO SCH ×2 (08:48→17:17)
[2018-01-06] MEDS: MUPIROCIN 2% TOPICAL OINTMENT 22 GM NS SCH ×2 (08:49→21:54)
--- NOTE | 2018-01-06 08:50 | NUR ---
MEDS ALL DUE MEDS ADMINISTERED ORDERED, BRENNA WELL. CONT TO MONITOR. CALL LIGHT IN REACH.
--- NOTE | 2018-01-06 09:36 | NUR ---
Case mgt: Requested DC neighborhood planner Sayra to f/u with Ayse at [facility] and [facility] for SNF placement and ambulance transportation
--- NOTE | 2018-01-06 11:17 | NUR ---
IV CLEOCIN ADMINISTERED ORDERED, BRENNA WELL. NO S/SX ASE NOTED. CONT TO MONITOR.
--- NOTE | 2018-01-06 11:34 | NUR ---
Case mgt: I called [facility] at [phone], opt#4 and s/w Hallie-I explained pt needed to go to SNF and [facility] had accepted pt but they were insisting that [facility] gets the authorization for them, and we had tried to explain that the SNF needs to generate the auth. Hallie called [facility], and is having the [facility] nurse cm contact me. Per Hallie at [facility], she sees the SNF order in their system. TEOFILO VIRK
--- NOTE | 2018-01-06 12:30 | NUR ---
MARYCHUY JIMENEZ [phone] REGARDING CONTINUATION OF IV ATB WHEN TRANSFERRED. AWAITING FOR CALL BACK Addendum: 01/06/18 at 1349 by Adilene Phillips RN PATIENTS BLOOD GLUCOSE 181 mg/dL WITH INSULIN ADMINISTERED ORDERED, BRENNA WELL. NO S/SX HYPO/HYPERGLYCEMIA NOTED.
--- NOTE | 2018-01-06 13:48 | NUR ---
Discharge Planning: DCP faxed referral to [facility] (f [phone] p [phone]), [facility] ( [phone] p [phone]), [facility] ( [phone] p [phone]); DCP to follow up. Addendum: 01/06/18 at 1434 by Sayra Hickman DP DCP followed up on [facility] (f [phone] p [phone]) Admission coordinator at [facility] [place] [facility] (f [phone] p [phone]) DCP spoke to Eric in admission he will accept pt if a authorization can be obtained. [facility] ( [phone] p [phone]) DCP LM with Candace for admissions. [facility] p [phone]) [place] was trying to contact insurance. Addendum: 01/06/18 at 1456 by Sayra Hickman DP [facility] (f [phone] p [phone]) accepted pt to [address] Isolation (Auth#[id number]), [facility] arranged transportation with [facility] ([phone]) [facility] (Auth#[id number]), nurse to nurse [phone]. Pt packet taken to nurse station.
--- NOTE | 2018-01-06 14:11 | NUR ---
Case mgt: Left voice message for Dr. Sánchez re: need to know IV Vanco to continue Q 12hrs for 6 weeks, but is this 6 weeks after discharge or from start of IV Vanco and also, is pt to continue IV Clindamycin Q 6hr and for how long? Nurse Leighann also paging Dr. Sánchez regarding these questions as [facility] insurance needs to know this information. TEOFILO VIRK
--- NOTE | 2018-01-06 14:20 | NUR ---
PAGED [phone] REGARDING WOUND CARE ORDERS
--- NOTE | 2018-01-06 14:35 | NUR ---
SPOKE TO REGARDING IV CONTINUATION WHEN TRANSFERRED. WANTS TO CONT VANCO FOR X6 WEEKS FROM TODAY AND CLEOCIN CAN BE STOPPED
--- NOTE | 2018-01-06 14:38 | NUR ---
MEDS PATIENT SITTING UP IN BED TALKING ON CELL PHONE. DENIES PAIN. VISTARIL ADMINISTERED ORDERED, BRENNA WELL. CONT TO MONITOR
--- NOTE | 2018-01-06 14:39 | NUR ---
Case mgt: I got call from Nano, critical care rn at [facility]-she gave auth#[id number] for [facility] and said to use auth#[id number] for ambulance auth-any ambulance company for transfer to SNF--Her cb #[phone]. I also got call from Jameel at [facility] ph#[phone] asking for rm# at [facility] (Rm#[id number] and is isolation rm for MRSA). I also got call from Carolyn at [facility] needing confirmation that [facility] is designated SNF--her cb#[phone]--TEOFILO RN
--- NOTE | 2018-01-06 15:40 | NUR ---
CALLED x2, REGARDING WOUND CARE ORDERS. SPOKE TO RAILROAD CAR LOADER AND SHE SAID SHE JUST GAVE THE INFO TO CALL BACK REGARDING PATIENT CORAZON Sanchez.; AWAITING FOR CALL BACK
--- NOTE | 2018-01-06 16:00 | NUR ---
Social Service Note: [facility] provided pt with a note stating pt's admission and prospective discharge date for pt's work. [facility] has faxed letter to pt's employer per pt's request. Pt was provided with the letter and confirmation of fax receipt.
--- NOTE | 2018-01-06 17:20 | NUR ---
BLOOD GLUCOSE PATIENT'S BLOOD SUGAR IS 155mg/dL WITH INSULIN ADMINISTERED ORDERED, BRENNA WELL. CONT TO MONITOR. CALL LIGHT IN REACH.
--- NOTE | 2018-01-06 18:00 | NUR ---
DR.HAKAK MURO AT NURSES [facility]. REPORTED TO PATIENT HAS A BED AT [facility] AND IS OKAY TO D/C, BUT WAITING FOR TO GIVE WOUND CARE ORDERS AND HIS OKAY TO D/C. CONT TO MONITOR
--- NOTE | 2018-01-06 18:52 | NUR ---
CLOSING NOTE PATIENT AWAKE IN BED. NO C/O PAIN. NO ACUTE DISTRESS. NO SOB. RESPIRATION EVEN AND UNLABORED. SKIN WARM AND DRY TO TOUCH. IV INTACT AND PATENT. BRENNA IV FLUID. ALL NEEDS MET. BED IN LOW AND LOCKED POSITION. SIDERAIL UPX2. PATIENT REFUSED BED ALARM. AWAITING FOR TO CALL BACK. CALL LIGHT IN REACH. CONT TO MONITOR
--- NOTE | 2018-01-06 19:15 | NUR ---
OPENING NOTE Received report from Adilene. Patient resting in bed awake, alert, oriented x4. Breathing unlabored and even on room air. No signs of distress, no needs at this time. Fall, safety, contact precautions in place. Bed in lowest position, brake on, call light within reach. IVF infusing as ordered. Patient to be transferred to [facility], upon receiving wound care orders from Dr. Vilchis. Adilene has paged Dr. Vilchis 2 times, with no call back. Will re-page Dr. Vilchis to obtain orders so that patient can be transferred tonight. [facility] ambulance on will-call. Need to give report to [facility], patient to room 129A, isolation room. Will continue to monitor.
--- NOTE | 2018-01-06 19:45 | NUR ---
Third call for Dr. Vilchis. SULLY Park spoke to the doctor.
--- NOTE | 2018-01-06 19:53 | NUR ---
Spoke to Dr. Vilchis. Requesting wound care orders for transfer. Dr. Vilchis just put the orders in. Okay to transfer patient.
--- NOTE | 2018-01-06 19:56 | NUR ---
Called [facility] ambulance to request ambulance that is on will-call. Per DANIEL Eddy 2-3 hours, so by 23:00. [facility] # [phone]
--- NOTE | 2018-01-06 20:12 | NUR ---
Called [facility] and spoke to SULLY Camarillo . Gave report to the RN. Patient to go to room 129A (iso).
[2018-01-06] MEDS ORDERED: VANC1.754 IV (20:58)
[2018-01-06] MEDS: ENOXAPARIN SODIUM 40 MG/0.4 ML SYRINGE SUBCUT SCH (21:00)
--- NOTE | 2018-01-06 22:04 | NUR ---
Med pass. Patient refused lovenox. Blood sugar 159. Administered 2 units of regular insulin per PRN insulin sliding scale.
--- NOTE | 2018-01-06 23:20 | NUR ---
PT TRANSFERRED Report given to Rabia at [facility]. Transfer packet with Transfer Orders and Medication Reconciliation form given to EMT with report. Exitcare provided. [facility] ID band removed, replaced with ID band with pt's name and . All belongings sent with patient. Patient left floor via gurney escorted by EMT in no distress.
== END 2018-01-06 23:20 | DRG 720 ==
LOC: SED 13:19 → SMU 16:26 → STU 23:45 → SMU 01-05 14:03
PROVIDERS: ADMIT Internal Medicine; ATTEND Internal Medicine
PROC: 0HBMXZZ Excision of Right Foot Skin, External Approach (ICD-10-PCS; principal; 2018-01-04 16:30)
DX: A41.9 Sepsis, unspecified organism (principal); E43 Unspecified severe protein-calorie malnutrition; E11.51 Type 2 diabetes mellitus with diabetic peripheral angiopathy without gangrene; E11.621 Type 2 diabetes mellitus with foot ulcer; B35.1 Tinea unguium; D63.8 Anemia in other chronic diseases classified elsewhere; L03.115 Cellulitis of right lower limb; B36.9 Superficial mycosis, unspecified; E11.69 Type 2 diabetes mellitus with other specified complication; F31.9 Bipolar disorder, unspecified; F41.9 Anxiety disorder, unspecified; I10 Essential (primary) hypertension; M86.8X6 Other osteomyelitis, lower leg; L97.519 Non-pressure chronic ulcer of other part of right foot with unspecified severity; L98.8 Other specified disorders of the skin and subcutaneous tissue; B95.62 Methicillin resistant Staphylococcus aureus infection as the cause of diseases classified elsewhere; E11.65 Type 2 diabetes mellitus with hyperglycemia; Z79.4 Long term (current) use of insulin; Z91.19 Patient's noncompliance with other medical treatment and regimen; Z89.412 Acquired absence of left great toe; Z68.36 Body mass index [BMI] 36.0-36.9, adult; Z79.899 Other long term (current) drug therapy; Z79.82 Long term (current) use of aspirin
CPT/HCPCS: 36415; 71045; 80048; 80053; 80061; 80202-TC; 81000-TC; 82962; 83036; 83605; 84439; 84443-TC; 85025; 85610-TC; 85651-TC; 87040-TC; 87070-TC; 87075-TC; 87081; 87186-TC; 93005; 94010; 96365; 96368; 99285; J1650; J1815; J1956; J2250; J2543; J3370; J3490; J7030; J7040; J7060

== ENCOUNTER 2021-11-07 19:53 | Emergency (ER) | payer OTHER ==
[~2021-11-07] VITALS: Ht 175.3 cm; Wt 90.7 kg
[~2021-11-07 19:53] MED LIST: ASPI-1393 PO; ESCI10TA PO; GLU500 PO; MULT-1117 PO; MUPIROCIN 2% TP; [UNRECOGNIZED DRUG - CODE] IV
[2021-11-07 20:14] VITALS: BP_SYST 149
--- NOTE | 2021-11-07 20:23 | NUR ---
Pt with cellulitis to right mid back starting 3 days ago. States has been draining white pus. Hx DM.
--- NOTE | 2021-11-07 20:24 | NUR ---
Patient to ER bed 5 to gown for evaluation. Side rails up. Report given to Jenny VIRK(angi).
--- NOTE | 2021-11-07 20:49 | NUR ---
I&D Procedure done by Dr Bradley to L side of back using sterile technique. Lidocaine 1% used. Wound packed with steristrip 1 in . Adaptic, 4x4 and leticia to wound. minima amt of bleeding noted. Wound care discussed w/ patient. Pt tolerated procedure well.
[2021-11-07] MEDS ORDERED: SULF1TAB48 PO (21:21)
[2021-11-07] MEDS ORDERED: HYDR-3917 PO (21:21)
[2021-11-07] MEDS ORDERED: HYDROcodone/ACETAMIN 5-325 MG TAB (NORCO/ VICODIN) PO ONE (21:30)
[2021-11-07] MEDS ORDERED: CLINDAMYCIN PHOSPHATE 300 MG/2 ML VIAL IM ONE (21:30)
[2021-11-07] MEDS ORDERED: D5W IV ONE (22:15)
[2021-11-07] MEDS ORDERED: CLINDAMYCIN 600 MG/50 ML IV ONE (22:15)
[2021-11-07 22:40] VITALS: BP_SYST 149
--- NOTE | 2021-11-07 22:42 | NUR ---
Patient given written and verbal discharge instructions and verbalizes understanding. ER MD Bradley discussed with patient the results and treatment provided. Patient in stable condition. ID arm band removed. Rx of [place] and Bacttrim DS sent to preferred pharmacy. Patient educated on pain management and to follow up with PMD. Pain Scale 0/10. Opportunity for questions provided and answered. Medication side effect fact sheet provided.
== END 2021-11-07 22:40 | disposition home or self-care (01) ==
LOC: SED 19:53
DX: L02.212 Cutaneous abscess of back [any part, except buttock and flank] (principal); E11.9 Type 2 diabetes mellitus without complications; Z79.899 Other long term (current) drug therapy; Z79.84 Long term (current) use of oral hypoglycemic drugs
CPT/HCPCS: 99284; J3490

== ENCOUNTER 2021-11-11 11:07 | Inpatient (IN) | payer OTHER ==
[~2021-11-11] VITALS: Ht 175.3 cm; Wt 90.7 kg
[2021-11-11 11:07] VITALS: BP_SYST 141
[~2021-11-11 11:07] MED LIST changes: +HYDR-3917 PO; +SULF1TAB48 PO
--- NOTE | 2021-11-11 11:07 | NUR ---
BROUGHT IN VIA WHEELCHAIR AND PLACED IN BED #7, TRIAGED. REPORT GIVEN TO ANGELICA/VIDHYA
--- NOTE | 2021-11-11 11:45 | NUR ---
MD DR MEYERS AT BEDSIDE
[2021-11-11 11:55] LABS: BASOPHILS % (AUTO) 0.4 % (0.0-2.0); EOSINOPHILS # (AUTO) 0.2 K/uL (0.0-0.4); EOSINOPHILS % (AUTO) 1.3 % (0.0-4.0); HEMATOCRIT 34.1 % (36-54); LYMPHOCYTES # (AUTO) 1.1 K/uL (1.0-5.5); LYMPHOCYTES % (AUTO) 8.6 % (20.5-51.5); MEAN CORPUSCULAR VOLUME 81 fL (79.0-98.0); MONOCYTES # (AUTO) 0.6 K/uL (0.0-1.0); MONOCYTES % (AUTO) 4.4 % (1.7-9.3); NEUTROPHILS # (AUTO) 10.8 K/uL (1.8-7.7); NEUTROPHILS % (AUTO) 85.3 % (40.0-70.0); PLATELET COUNT (AUTO) 257 K/uL (130-430); RED BLOOD CELL COUNT(AUTO) 4.22 MIL/uL (4.2-6.2); RED CELL DISTRIBUTION WIDTH 13.5 % (9.0-15.0); WHITE BLOOD COUNT (AUTO) 12.7 K/uL (4.8-10.8)
--- NOTE | 2021-11-11 12:10 | NUR ---
PT BIB AWAKE AND ALERT, AOX4. PT WAS AMBULATORY, [facility]. PT C/O PAIN TO A ABCESS INCISION THAT WAS PERFORMED 2 DAYS AGO. PT STATED HE HAS DM 2, BUT WAS NO COMPLIANT WITH HIS INSULIN FOR THE PAST 2 MONTHS. BS WAS ELEVATED UPON ARRIVAL, UNABLE TO GET READING FROM GLUCOSE METER, AWAITING BLOODWORK TO DETERMINE ACCURATE LEVELS. VSS
--- NOTE | 2021-11-11 12:18 | NUR ---
COVID SWAB COLLECTED AND SENT TO LAB.
[2021-11-11 12:45] LABS: ALBUMIN 2.1 g/dL (3.4-4.8); CALCIUM 8.5 mg/dL (8.4-11.0); CREATININE 1.56 mg/dL (0.55-1.30); POTASSIUM 4.8 mmol/L (3.5-5.1); TOTAL BILIRUBIN 0.3 mg/dL (0.0-1.0)
--- NOTE | 2021-11-11 12:51 | NUR ---
JE=[id number]/DL, DR MEYERS INFORMED.
[2021-11-11] MEDS ORDERED: INSULIN REGULAR, HUMAN 10 UNITS/0.1 ML, 3 ML VIAL IVP ONE (13:45)
[2021-11-11] MEDS ORDERED: PIPERACILLIN/TAZO 4.5GM/DEX-IS 100 ML IV SCH (13:45)
[2021-11-11] MEDS ORDERED: NACL 0.9% 1,000 ML IV ONE (13:45)
[2021-11-11] MEDS ORDERED: PIPERACILLIN/TAZO 4.5GM/DEX-IS 100 ML IV ONE (14:00)
[2021-11-11] MEDS ORDERED: PIPERACILLIN/TAZOBACTAM 4.5 GM/VIAL (ZOSYN) IV ONE (14:15)
[2021-11-11 14:50] LABS: C-REACTIVE PROTEIN QUANT 24.3 mg/dL (0-0.5)
--- NOTE | 2021-11-11 16:00 | NUR ---
Admit bed requested Patient will be admitted to care of . Admitted to M/S unit. Diagnosis SEBACIOUS CYST Inpatient (Yes or No) Y Observation (Yes or No) N Orientation concerns or request close to nursing station (Yes or No) N Covid Status NEG On vent or bipap N Isolation requirements N Needs a sitter N From Home (Yes or if No enter name of facility) Y Requires Dialysis (Yes or No) N Med Rec Completed (Yes of No) Y
--- NOTE | 2021-11-11 16:09 | NUR ---
Admit bed requested Patient will be admitted to care of Dr. WIGGINS Admitted to MED SURGE unit. Diagnosis SEBACIOUS CYST Inpatient (Yes or No) YES Observation (Yes or No) YES Orientation concerns or request close to nursing station (Yes or No) NO Covid Status NEG On vent or bipap NO Isolation requirements NO Needs a sitter NO From Home (Yes or if No enter name of facility) YES Requires Dialysis (Yes or No) NO Med Rec Completed (Yes of No) YES
--- NOTE | 2021-11-11 16:11 | NUR ---
BS 468
[2021-11-11] MEDS: NACL 0.9% 1,000 ML IV SCH (16:38)
--- NOTE | 2021-11-11 16:41 | NUR ---
Pt denies taking medications at home
[2021-11-11] MEDS ORDERED: POTASSIUM CHLORIDE 20 MEQ TAB.PRT.SR PO PRN (16:45)
[2021-11-11] MEDS ORDERED: MAGNESIUM SULFATE 50 ML IV PRN (16:45)
[2021-11-11] MEDS ORDERED: MUPIROCIN 2% TOPICAL OINTMENT 22 GM NS PRN (16:45)
[2021-11-11] MEDS ORDERED: LORazepam 2 MG/ML VIAL IVP PRN (16:45)
[2021-11-11] MEDS ORDERED: DOCUSATE SODIUM 100 MG CAPSULE PO PRN (16:45)
[2021-11-11] MEDS ORDERED: ACETAMINOPHEN 325 MG TABLET PO PRN (16:45)
[2021-11-11] MEDS ORDERED: ONDANSETRON HCL 4 MG/2 ML VIAL IVP PRN (16:45)
--- NOTE | 2021-11-11 17:11 | NUR ---
Patient will be admitted to care of ISI VIRK. Admitted to MEDSURGE unit. Will go to room 111A. Belongings list completed. Complete and up to date summary report printed. SBAR report to be given at bedside TO ISI with opportunity for questions.
--- NOTE | 2021-11-11 17:32 | NUR ---
CONSULTATION PAGED REASON FOR CONSULTATION BACK ABSCESS WAS CONSULT CALED?Y PERSON WHO WAS NOTIFIED:FOREST CONSULTING PHYSICIAN:SOWMYA YBARRA CARPET MEASURER SPECIALTY:INFECTIOUS DISEASE CARPET MEASURER PHONE NUMBER:[phone] REQUESTING PHYSICIAN:DR.SINGHCRE[facility]WO[facility] MED[facility] CENT[facility]UNITA
[2021-11-11] MEDS: MORPHINE 2 MG/ML INJ. SYRINGE IVP PRN ×3 (17:45→22:13)
[2021-11-11 17:52] VITALS: BP_SYST 134
[2021-11-11] MEDS: INSULIN NPH/REGULAR 70-30, 100 UNITS/ML, 3 ML VIAL SUBCUT SCH (18:22)
[2021-11-11] MEDS ORDERED: VANCOMYCIN HCL 1,500 MG in NS 250 ML IV ONE (19:00)
[2021-11-11 20:00] VITALS: BP_SYST 142
[2021-11-11] MEDS: INSULIN REGULAR, HUMAN 100 UNITS/ML, 3 ML VIAL (humuLIN R) SUBCUT PRN (20:31)
[2021-11-11] MEDS: HEPARIN SODIUM,PORCINE 5,000 UNITS/ML VIAL SUBCUT SCH (20:34)
[2021-11-11] MEDS: ACETAMINOPHEN 325 MG TABLET PO PRN (20:39)
[2021-11-12] VITALS: BP_SYST 136
[2021-11-12] MEDS: NACL 0.9% 1,000 ML IV SCH ×4 (00:10→18:19)
[2021-11-12] MEDS: ACETAMINOPHEN 325 MG TABLET PO PRN (01:23)
[2021-11-12 04:00] VITALS: BP_SYST 128
[2021-11-12] MEDS: INSULIN REGULAR, HUMAN 100 UNITS/ML, 3 ML VIAL (humuLIN R) SUBCUT PRN ×4 (06:17→22:04)
[2021-11-12] MEDS: INSULIN NPH/REGULAR 70-30, 100 UNITS/ML, 3 ML VIAL SUBCUT SCH ×2 (06:19→16:47)
--- NOTE | 2021-11-12 06:34 | NUR ---
SLEEP WELL LAST NIGHT. RESTLESS AT TIMES. DRESSING TO BACK DRY AND INTACT. NO DISTRESS NOTED. MEDICATED FOR HEADACHE AND PAIN NEEDED. ALL NEEDS ATTENDED. PIV INTACT AND INFUSING WELL. CALL LIGHT PLACED WITHIN REACH. MONITORED CLOSELY.
--- NOTE | 2021-11-12 07:28 | NUR ---
Report received from shift boss RN for continuity of care. Patient stable condition.
[2021-11-12 07:29] LABS: BASOPHILS % (AUTO) 0.3 % (0.0-2.0); EOSINOPHILS # (AUTO) 0.2 K/uL (0.0-0.4); EOSINOPHILS % (AUTO) 1.7 % (0.0-4.0); HEMATOCRIT 30.8 % (36-54); LYMPHOCYTES # (AUTO) 1.5 K/uL (1.0-5.5); MEAN CORPUSCULAR VOLUME 80 fL (79.0-98.0); MONOCYTES # (AUTO) 0.6 K/uL (0.0-1.0); MONOCYTES % (AUTO) 5.1 % (1.7-9.3); NEUTROPHILS # (AUTO) 9.3 K/uL (1.8-7.7); NEUTROPHILS % (AUTO) 79.9 % (40.0-70.0); PLATELET COUNT (AUTO) 252 K/uL (130-430); RED BLOOD CELL COUNT(AUTO) 3.83 MIL/uL (4.2-6.2); RED CELL DISTRIBUTION WIDTH 13.5 % (9.0-15.0); WHITE BLOOD COUNT (AUTO) 11.7 K/uL (4.8-10.8)
[2021-11-12 07:56] LABS: CALCIUM 8.1 mg/dL (8.4-11.0); CREATININE 1.06 mg/dL (0.55-1.30); POTASSIUM 4.3 mmol/L (3.5-5.1)
[2021-11-12 08:00] VITALS: BP_SYST 133
[2021-11-12] MEDS ORDERED: CITALOPRAM HYDROBROMIDE 20 MG TABLET PO SCH (09:00)
[2021-11-12] MEDS ORDERED: ESCITALOPRAM OXALATE 10 MG TABLET PO SCH (09:00)
[2021-11-12] MEDS: HEPARIN SODIUM,PORCINE 5,000 UNITS/ML VIAL SUBCUT SCH ×2 (09:01→21:45)
[2021-11-12] MEDS: VANCOMYCIN HCL 1,000 MG in NS 250 ML IV SCH ×2 (09:12→21:46)
[2021-11-12 12:00] VITALS: BP_SYST 124
[2021-11-12 12:35] LABS: BARBITURATE, URINE NEGATIVE (NEG <=200); BENZODIAZEPINE, URINE NEGATIVE (NEG <=150); CANNABINOID, URINE NEGATIVE (NEG <=50); COCAINE, URINE NEGATIVE (NEG <=150); METHAMPHETAMINES SCREEN,URINE NEGATIVE (NEG <=500); OPIATE, URINE POSITIVE (NEG <=100); PHENCYCLIDINE SCREEN,URINE NEGATIVE (NEG <=25); UR TRICYCLIC ANTIDEPRESSANTS NEGATIVE (NEG <=300); URINE AMPHETAMINE NEGATIVE (NEG <=500); URINE METHADONE NEGATIVE (NEG <=200); URINE OXYCODONE SCREEN NEGATIVE (NEG <=100); URINE PROPOXYPHENE SCREEN NEGATIVE (NEG <=300)
--- NOTE | 2021-11-12 13:34 | NUR ---
Spoke with Dr. Sanches regarding family explanation that patient has not taken Lexapro for "a while." New orders noted and carried out.
[2021-11-12 16:00] VITALS: BP_SYST 136
--- NOTE | 2021-11-12 18:44 | NUR ---
Patient ate dinner. Blood sugar and insulin given. No distress noted. IV fluids noted.
--- NOTE | 2021-11-12 18:57 | NUR ---
Report given to police shift commander RN for continuity of care. Patient stable.
[2021-11-12 20:00] VITALS: BP_SYST 137
[2021-11-12] MEDS: ZOLPIDEM TARTRATE 5 MG TABLET PO PRN (22:11)
[2021-11-12] MEDS: MORPHINE 2 MG/ML INJ. SYRINGE IVP PRN (22:12)
[2021-11-13] MEDS: NACL 0.9% 1,000 ML IV SCH ×4 (01:45→22:40)
[2021-11-13] MEDS: INSULIN NPH/REGULAR 70-30, 100 UNITS/ML, 3 ML VIAL SUBCUT SCH ×2 (06:22→16:34)
[2021-11-13 07:29] LABS: BASOPHILS % (AUTO) 0.5 % (0.0-2.0); EOSINOPHILS # (AUTO) 0.2 K/uL (0.0-0.4); EOSINOPHILS % (AUTO) 1.8 % (0.0-4.0); HEMATOCRIT 31.2 % (36-54); HEMOGLOBIN 10.5 g/dL (14.0-18.0); LYMPHOCYTES # (AUTO) 1.7 K/uL (1.0-5.5); MEAN CORPUSCULAR HEMOGLOBIN 27 pg (27-31); MEAN CORPUSCULAR HGB CONC 34 % (32-36); MEAN CORPUSCULAR VOLUME 80 fL (79.0-98.0); MONOCYTES # (AUTO) 0.5 K/uL (0.0-1.0); MONOCYTES % (AUTO) 5.1 % (1.7-9.3); NEUTROPHILS # (AUTO) 6.9 K/uL (1.8-7.7); NEUTROPHILS % (AUTO) 74.6 % (40.0-70.0); PLATELET COUNT (AUTO) 247 K/uL (130-430); RED BLOOD CELL COUNT(AUTO) 3.89 MIL/uL (4.2-6.2); RED CELL DISTRIBUTION WIDTH 13.7 % (9.0-15.0); WHITE BLOOD COUNT (AUTO) 9.2 K/uL (4.8-10.8)
--- NOTE | 2021-11-13 07:30 | NUR ---
Report received from slot shift manager RN for continuity of care. No distress noted.
[2021-11-13 07:43] VITALS: BP_SYST 135
[2021-11-13 09:30] LABS: CALCIUM 8.4 mg/dL (8.4-11.0); CREATININE 0.97 mg/dL (0.55-1.30); POTASSIUM 4.4 mmol/L (3.5-5.1)
[2021-11-13] MEDS: VANCOMYCIN HCL 1,000 MG in NS 250 ML IV SCH ×2 (09:40→22:37)
[2021-11-13] MEDS: HEPARIN SODIUM,PORCINE 5,000 UNITS/ML VIAL SUBCUT SCH ×2 (09:41→22:38)
[2021-11-13] MEDS: IBUPROFEN 400 MG TABLET PO PRN (10:03)
[2021-11-13] MEDS: INSULIN REGULAR, HUMAN 100 UNITS/ML, 3 ML VIAL (humuLIN R) SUBCUT PRN ×3 (12:34→23:05)
[2021-11-13 14:25] VITALS: BP_SYST 142
--- NOTE | 2021-11-13 16:20 | NUR ---
Dietitian Recommendations * Continue Consistent CHO diet as tolerated * Daily Glucerna * Recommend wound supplements: daily MVI, 500mg VIT C, 220mg zincate BID x 14 days * Toi BID once sepsis resolves Please refer to nutrition assessment for details, thanks! CC, MPH, RDN
[2021-11-13 16:49] VITALS: BP_SYST 151
--- NOTE | 2021-11-13 20:07 | NUR ---
Report given to strip deburrer RN for continuity of care. Patient in stable condition.
--- NOTE | 2021-11-13 22:25 | NUR ---
INCOMING CALL FROM PATIENT'S Patient's called and said her , Mr Cordoba is waiting for his pain med. Called the nurse's portable phone and there was no answer.
[2021-11-13] MEDS: ZOLPIDEM TARTRATE 5 MG TABLET PO PRN (22:43)
[2021-11-13] MEDS: MORPHINE 2 MG/ML INJ. SYRINGE IVP PRN (22:44)
[2021-11-14 00:12] VITALS: BP_SYST 153
[2021-11-14] MEDS: NACL 0.9% 1,000 ML IV SCH ×4 (06:10→23:21)
[2021-11-14] MEDS: MORPHINE 2 MG/ML INJ. SYRINGE IVP PRN (06:19)
[2021-11-14] MEDS: INSULIN NPH/REGULAR 70-30, 100 UNITS/ML, 3 ML VIAL SUBCUT SCH ×2 (06:24→17:54)
--- NOTE | 2021-11-14 07:30 | NUR ---
MORNING ROUNDS: PATIENT LYING ON HIS STOMACH IN BED. IV FLUIDS RUNNING WELL,INTACT. CALL LIGHT WITH IN REACH. BED LOCKED AT LOWEST POSITION. WITH DRESSING ON HIS BACK,CLEAN AND DRY. NOT IN ANY DISTRESS.
[2021-11-14 07:32] LABS: BASOPHILS % (AUTO) 0.4 % (0.0-2.0); EOSINOPHILS # (AUTO) 0.1 K/uL (0.0-0.4); EOSINOPHILS % (AUTO) 1.3 % (0.0-4.0); HEMATOCRIT 31.9 % (36-54); HEMOGLOBIN 10.8 g/dL (14.0-18.0); LYMPHOCYTES # (AUTO) 1.4 K/uL (1.0-5.5); LYMPHOCYTES % (AUTO) 14.7 % (20.5-51.5); MEAN CORPUSCULAR HEMOGLOBIN 27 pg (27-31); MEAN CORPUSCULAR HGB CONC 34 % (32-36); MEAN CORPUSCULAR VOLUME 81 fL (79.0-98.0); MONOCYTES # (AUTO) 0.4 K/uL (0.0-1.0); MONOCYTES % (AUTO) 4.2 % (1.7-9.3); NEUTROPHILS # (AUTO) 7.7 K/uL (1.8-7.7); NEUTROPHILS % (AUTO) 79.4 % (40.0-70.0); PLATELET COUNT (AUTO) 275 K/uL (130-430); RED BLOOD CELL COUNT(AUTO) 3.96 MIL/uL (4.2-6.2); RED CELL DISTRIBUTION WIDTH 13.4 % (9.0-15.0); WHITE BLOOD COUNT (AUTO) 9.8 K/uL (4.8-10.8)
[2021-11-14 07:49] LABS: CALCIUM 8.6 mg/dL (8.4-11.0); CREATININE 0.91 mg/dL (0.55-1.30); POTASSIUM 3.9 mmol/L (3.5-5.1)
[2021-11-14 09:00] VITALS: BP_SYST 142
[2021-11-14] MEDS: HEPARIN SODIUM,PORCINE 5,000 UNITS/ML VIAL SUBCUT SCH ×2 (10:03→20:21)
[2021-11-14] MEDS: VANCOMYCIN HCL 1,000 MG in NS 250 ML IV SCH ×2 (10:08→20:20)
--- NOTE | 2021-11-14 11:30 | NUR ---
BLOOD SUGAR: BLOOD SUGAR TAKEN,WITH INSULIN COVERAGE GIVEN PER SLIDING SCALE. WITH NO PROBLEM.
[2021-11-14 11:47] VITALS: BP_SYST 148
[2021-11-14] MEDS: INSULIN REGULAR, HUMAN 100 UNITS/ML, 3 ML VIAL (humuLIN R) SUBCUT PRN ×3 (12:03→20:24)
--- NOTE | 2021-11-14 14:30 | NUR ---
RN ROUNDS: PATIENT RESTING. NO COMPLAINT MADE.
[2021-11-14 15:44] VITALS: BP_SYST 139
--- NOTE | 2021-11-14 17:30 | NUR ---
BLOOD SUGAR: BLOOD SUGAR TAKEN,WITH INSULIN COVERAGE GIVEN PER SLIDING SCALE.NO PROBLEM.
--- NOTE | 2021-11-14 18:35 | NUR ---
EVENING ROUNDS: DINNER WAS SERVED. FAMILY AT THE BEDSIDE. PATIENT HAVING DINNER.CALL LIGHT WITH IN REACH. BED LOCKED AT LOWEST POSITION. IV FLUIDS RUNNING WELL AT RIGHT FOREARM INTACT.NO ACUTE DISTRESS.DENIES ANY PAIN.
--- NOTE | 2021-11-14 19:16 | NUR ---
Received report from AM shift RN, and assumed patient care.
[2021-11-14] MEDS: ZOLPIDEM TARTRATE 5 MG TABLET PO PRN (20:21)
--- NOTE | 2021-11-14 21:00 | NUR ---
Educated the patient about the plan of care, and the unit policies, as well as utilizing call lights. Patient understands teaching and will reinforce education if needed throughout the shift.
--- NOTE | 2021-11-14 23:10 | NUR ---
Patient's called for condition updates, provided nursing updates and had no further questions noted at the end of the conversation. Will reinforce if needed throughout the shift.
[2021-11-15 01:03] VITALS: BP_SYST 141
[2021-11-15] MEDS: NACL 0.9% 1,000 ML IV SCH ×3 (05:50→20:00)
[2021-11-15] MEDS: INSULIN NPH/REGULAR 70-30, 100 UNITS/ML, 3 ML VIAL SUBCUT SCH ×2 (06:03→17:57)
--- NOTE | 2021-11-15 06:41 | NUR ---
Performed wound care on patient's large abscess at the back, the dressing had yellow-greenish color discharge noted on the gauze, and the redness is still around the abscess. Patient had no pain during the wound assessment, and will reinforce if needed throughout the shift.
[2021-11-15 07:06] LABS: BASOPHILS % (AUTO) 0.4 % (0.0-2.0); EOSINOPHILS # (AUTO) 0.1 K/uL (0.0-0.4); EOSINOPHILS % (AUTO) 1.4 % (0.0-4.0); HEMATOCRIT 31.5 % (36-54); HEMOGLOBIN 10.6 g/dL (14.0-18.0); LYMPHOCYTES # (AUTO) 1.4 K/uL (1.0-5.5); LYMPHOCYTES % (AUTO) 16.6 % (20.5-51.5); MEAN CORPUSCULAR HEMOGLOBIN 27 pg (27-31); MEAN CORPUSCULAR HGB CONC 34 % (32-36); MEAN CORPUSCULAR VOLUME 81 fL (79.0-98.0); MONOCYTES # (AUTO) 0.4 K/uL (0.0-1.0); MONOCYTES % (AUTO) 5.1 % (1.7-9.3); NEUTROPHILS # (AUTO) 6.3 K/uL (1.8-7.7); NEUTROPHILS % (AUTO) 76.5 % (40.0-70.0); PLATELET COUNT (AUTO) 256 K/uL (130-430); RED BLOOD CELL COUNT(AUTO) 3.88 MIL/uL (4.2-6.2); RED CELL DISTRIBUTION WIDTH 13.4 % (9.0-15.0); WHITE BLOOD COUNT (AUTO) 8.2 K/uL (4.8-10.8)
[2021-11-15 08:12] LABS: CALCIUM 8.8 mg/dL (8.4-11.0); CREATININE 0.94 mg/dL (0.55-1.30); POTASSIUM 4.3 mmol/L (3.5-5.1)
[2021-11-15] MEDS: VANCOMYCIN HCL 1,000 MG in NS 250 ML IV SCH (09:56)
[2021-11-15] MEDS: HEPARIN SODIUM,PORCINE 5,000 UNITS/ML VIAL SUBCUT SCH ×2 (09:58→20:29)
--- NOTE | 2021-11-15 13:32 | NUR ---
CONSULTATION PAGED REASON FOR CONSULTATION:ABSCESS DRAINING ON THE BACK WAS CONSULT CALLED?Y PERSON WHO WAS NOTIFIED:NIGEL CONSULTING PHYSICIAN:TAY GUPTA SOLAR ENERGY SALES SPECIALIST SPECIALTY:SURGEON SOLAR ENERGY SALES SPECIALIST PHONE NUMBER:[phone] REQUESTING PHYSICIAN:DR.SINGHCOOPER GREEN [facility] HOSPITALSUNITA
[2021-11-15] MEDS: CEFAZOLIN 1 GM IVPB PREMIX 50 ML IV SCH ×2 (14:00→20:27)
--- NOTE | 2021-11-15 14:10 | NUR ---
WOUND EVALUATION: Late note for 1410 secondary to patient care. Wound Consult received from Dr. Sanches. Thank you, Dr. Sanches, for the consult. Patient received in a [place] Bed with a mattress, awake, alert, and oriented. Patient is unable to turn independently. Tommy Score is a 21. Past Medical History: Diabetes Mellitus (uncontrolled), Diabetic Neuropathy, recent abscess which was drained about 3-4 days ago in the emergency room, medical noncompliance, Toe Resection due to Diabetes complications, Malnutrition. Recent Labs: WBC 8.2, RBC 3.88, hemoglobin 10.6, hematocrit 31.5, glucose 127, POC glucose 120, albumin 2.1. Microbiology: Blood culture results x2 in progress. Wound/Abscess culture results positive for Staphylococcus aureus. Intrinsic factors that delay wound healing: Diabetes Mellitus (uncontrolled), Diabetic Neuropathy, Hypoalbuminemia, Malnutrition, non-healing abscess. Wound Assessment: 1. Right Posterior Upper Back: Abscess, present on admission. Wound bed has 100% yellow slough. Mild odor, moderate yellow purulent drainage. Tunnel present at 12 o'clock measuring 2.4 cm and 6 o'clock measuring 1.0 cm. Induration with nonblanchable red erythema present surrounding wound extending 13.5 cm superiorly and 15.0 cm inferiorly. Wound measures 0.7 cm x 3.2 cm x 2.0 cm. Recommend: Cleanse wound with normal saline. Apply moisture barrier cream to tangela-wound. Apply Venelex ointment to wound bed. Pack wound with 1/4 inch iodoform packing strip (pack tunneled areas at 12 o'clock and 6 o'clock first, then fill wound cavity. Cover wound with foam dressing. Perform wound care daily, and as needed for dressing soiling or dislodgement. Also recommend: Encourage and assist patient as needed with repositioning every 2 hours with pillow support and off-load pressure areas with pillows for pressure re-distribution. Offload, elevate and float bilateral heels with pillows. Perform skin care and monitor skin integrity Q shift.
[2021-11-15] MEDS: MORPHINE 2 MG/ML INJ. SYRINGE IVP PRN (17:35)
[2021-11-15 20:00] VITALS: BP_SYST 141
[2021-11-15] MEDS: IBUPROFEN 400 MG TABLET PO PRN (20:27)
[2021-11-15] MEDS: ZOLPIDEM TARTRATE 5 MG TABLET PO PRN (20:28)
[2021-11-15] MEDS: INSULIN REGULAR, HUMAN 100 UNITS/ML, 3 ML VIAL (humuLIN R) SUBCUT PRN (21:26)
[2021-11-16 01:07] VITALS: BP_SYST 151
[2021-11-16] MEDS: NACL 0.9% 1,000 ML IV SCH ×3 (03:58→17:08)
[2021-11-16] MEDS: CEFAZOLIN 1 GM IVPB PREMIX 50 ML IV SCH ×3 (05:04→22:57)
[2021-11-16] MEDS: INSULIN NPH/REGULAR 70-30, 100 UNITS/ML, 3 ML VIAL SUBCUT SCH ×2 (06:01→17:04)
[2021-11-16 08:00] VITALS: BP_SYST 156
[2021-11-16 08:44] LABS: BASOPHILS % (AUTO) 0.3 % (0.0-2.0); EOSINOPHILS # (AUTO) 0.1 K/uL (0.0-0.4); EOSINOPHILS % (AUTO) 1.4 % (0.0-4.0); HEMATOCRIT 32.3 % (36-54); HEMOGLOBIN 10.9 g/dL (14.0-18.0); LYMPHOCYTES # (AUTO) 1.4 K/uL (1.0-5.5); LYMPHOCYTES % (AUTO) 19.7 % (20.5-51.5); MEAN CORPUSCULAR HEMOGLOBIN 27 pg (27-31); MEAN CORPUSCULAR HGB CONC 34 % (32-36); MEAN CORPUSCULAR VOLUME 81 fL (79.0-98.0); MONOCYTES # (AUTO) 0.3 K/uL (0.0-1.0); MONOCYTES % (AUTO) 4.8 % (1.7-9.3); NEUTROPHILS # (AUTO) 5.2 K/uL (1.8-7.7); NEUTROPHILS % (AUTO) 73.8 % (40.0-70.0); PLATELET COUNT (AUTO) 267 K/uL (130-430); RED BLOOD CELL COUNT(AUTO) 4.01 MIL/uL (4.2-6.2); RED CELL DISTRIBUTION WIDTH 13.5 % (9.0-15.0); WHITE BLOOD COUNT (AUTO) 7.1 K/uL (4.8-10.8)
[2021-11-16] MEDS: HEPARIN SODIUM,PORCINE 5,000 UNITS/ML VIAL SUBCUT SCH ×2 (08:44→20:33)
[2021-11-16 08:54] LABS: CALCIUM 8.7 mg/dL (8.4-11.0); CREATININE 0.96 mg/dL (0.55-1.30); POTASSIUM 4.2 mmol/L (3.5-5.1)
[2021-11-16] MEDS: BALSAM PERU/CASTOR OIL 56.7 GM OINT...G. TP SCH (09:00)
[2021-11-16 11:27] VITALS: BP_SYST 132
[2021-11-16] MEDS: INSULIN REGULAR, HUMAN 100 UNITS/ML, 3 ML VIAL (humuLIN R) SUBCUT PRN ×3 (11:54→20:31)
[2021-11-16 15:29] VITALS: BP_SYST 136
--- NOTE | 2021-11-16 16:00 | NUR ---
Nutrition F/U Admitting Diagnosis Sebaceous cyst Reviewed Pertinent Medical/Surgical Hx Medical Record Primary RN FELT TIPPING MACHINE TENDER Medical History Comment: per EMR: 51y male with PMHx T2DM uncontrolled, s/p I&D of back abscess 10/29, previous toe resection d/t DM complications who presented to the ED via wheelchair c/o pain to abscess incision. Patient is noted to be non-compliant with DM and BG in ED 664 mg/dL. After assessment, pt found with sepsis and moderate malnutrition, per MD notes. Subjective Information: RD rounded to pt's room, however, pt was in restroom. FELT TIPPING MACHINE TENDER present -- stated pt has been vomiting since after lunch. She reported that pt has been snacking majority of the day (saltine crackers/puddings seen at bedside). RD spoke w/ pt's primary RN to inquire about whether pt is still septic -- he was unsure, however, WBC/lactic acid lab values are WNL and pt does not have a temperature. RN stated pt was not provided w/ any meds that would have caused vomiting. RN stated he will alert physician of pt's current condition. Per EMR review, pt is pending surgical consult/clearance for D/C. Current Diet Order/Nutrition Support: CCHOx5 days Patient/Significant Other Able To Verbalize Education Provided Indicated Pertinent Medications: Reviewed Pertinent Labs: Reviewed Height (Feet) 5 feet Height (Inches) 9.00 inches Weight (Pounds) 200 pounds -- stable since 11/13 Patient Weight 90.718 kg Body Mass Index 29.53 kg/m2 %IBW 125 [place]/Adjusted Body Weight 160#/73kg Recent Weight Change No Weight Status Overweight Gastrointestinal Symptoms Vomiting Last BM No documentation as of 11/16 Usual Diet At Home Regular (mostly home-cooked meals) Skin Integrity Comment: Tommy 20: Back incision/wound 11/13 Current % PO 80% average x5 meal records since 11/13 NEW Estimated Energy Expenditure (kcals/day) 5773-6703 (30-35 kcal/kg IBW d/t wound) Estimated Protein Required (g/day) 87-109 (1.2-1.5 g/kg IBW d/t wound) NEW Estimated Fluid Required (l/day) 2.2-2.6 (1 ml/kcal/day for maintenance) Problem/Etiology/Signs/Symptoms * Altered nutrition-related lab values r/t endocrine dysfunction a/e/b elevated serum glucose: 133 mg/dL on 11/13; >600 mg/dL in ED. *Ongoing * Food and nutrition-related knowledge deficit r/t T2DM a/e/b patient asking for DM wound care nutrition and [facility] diet education. *Ongoing * Complicated GI function R/T unknown etiology AEB vomiting. *New Expected Outcomes/Goals PO intake provides >85% estimated nutritional needs, nutrition-related lab values trending WNL, improvements in skin integrity, BM q1-3 days, weight maintenance Dietitian Recommendations * Resume [facility] diet if/when medically appropriate * Consider Glucerna BID and daily MVI, 500mg VIT C, 220mg zincate BID x 14 days * Toi BID once sepsis resolves Follow Up High Risk: F/U in 2-3 days Addendum: 11/16/21 at [address] Nutrition Consult (R upper back abscess) 11/15/21 [id number]
--- NOTE | 2021-11-16 16:10 | NUR ---
Dietitian Recommendations * Resume [facility] diet if/when medically appropriate * Consider Glucerna BID and daily MVI, 500mg VIT C, 220mg zincate BID x 14 days * Toi BID once sepsis resolves LP, MS, RD Please refer to Nutrition F/U for details.
--- NOTE | 2021-11-16 19:20 | NUR ---
OPENING NOTE PT IS WALKING AROUND HALLS. NO APPARENT DISTRESS NOTED AT THIS TIME. PT IS DENYING PAIN AT THIS TIME. ALL NEEDS MET AT THIS TIME.
[2021-11-16 20:00] VITALS: BP_SYST 155
[2021-11-16] MEDS: ZOLPIDEM TARTRATE 5 MG TABLET PO PRN (20:21)
[2021-11-16] MEDS: MORPHINE 2 MG/ML INJ. SYRINGE IVP PRN (22:58)
--- NOTE | 2021-11-17 00:15 | NUR ---
WOUND CARE PERFORMED WOUND CARE PERFORMED ON PTS BACK PER WOUND CARE ORDERS. PT WAS MEDICATED FOR THIS PROCEDURE PT TOLERATED WELL.
[2021-11-17 00:19] VITALS: BP_SYST 134
[2021-11-17] MEDS: CEFAZOLIN 1 GM IVPB PREMIX 50 ML IV SCH ×3 (06:17→22:09)
[2021-11-17] MEDS: INSULIN NPH/REGULAR 70-30, 100 UNITS/ML, 3 ML VIAL SUBCUT SCH ×2 (06:18→17:37)
--- NOTE | 2021-11-17 07:01 | NUR ---
CLOSING NOTE PT IS LYING IN BED PRONE WITH EYES CLOSED. NO APPARENT DISTRESS NOTED AT THIS TIME. BED IN LOWEST POSITION WITH FALL AND SAFETY PRECAUTIONS IN PLACE. CALL LIGHT IS WITHIN REACH. IV ABX RUNNING ORDERED
--- NOTE | 2021-11-17 07:07 | NUR ---
receive the patient from the maintenance supervisor 2nd shift in a stable condition with admitting diagnosis of subcutaneous cyst . no compalin of pain at this time . no signa and symptoms of respiratory distress . will continue to monitor
[2021-11-17 08:00] VITALS: BP_SYST 125
[2021-11-17] MEDS: HEPARIN SODIUM,PORCINE 5,000 UNITS/ML VIAL SUBCUT SCH ×2 (09:33→22:17)
--- NOTE | 2021-11-17 09:36 | NUR ---
DR ELIAS, GEN SURGEON WAS CALLED AGAIN RE: REMIND HIM OF THE CONSULT CALLED IN LAST THURSDAY. SPOKE TO SATISH.
[2021-11-17] MEDS: BALSAM PERU/CASTOR OIL 56.7 GM OINT...G. TP SCH (09:38)
--- NOTE | 2021-11-17 10:30 | NUR ---
made some rounds today . check the wound at the back of the patient . prescribe 2x per shift due to the bad situtation of the wound
[2021-11-17] MEDS: INSULIN REGULAR, HUMAN 100 UNITS/ML, 3 ML VIAL (humuLIN R) SUBCUT PRN ×2 (13:31→17:32)
[2021-11-17] MEDS: MORPHINE 2 MG/ML INJ. SYRINGE IVP PRN (17:28)
--- NOTE | 2021-11-17 18:42 | NUR ---
will endorse to polygraph technician rn for continuity of care
[2021-11-17 19:00] VITALS: BP_SYST 128
--- NOTE | 2021-11-17 19:15 | NUR ---
change of shift.pt.presents quiescent affect.pt.presents wound;back.dsg to be attended to bid.pt.presents iv access location: rt.forearm.intact.pt.capable to ambulate;un-assisted,reposition self.general status stable.respiratory status stable;unlabored@ room air.call light/telephone w/in access of the pt.
--- NOTE | 2021-11-17 19:25 | NUR ---
OPENING NOTE PT IS SITTING IN ROOM WITH GIRLFRIEND AND FAMILY MEMBER PRESENT. NO APPARENT DISTRESS NOTED AT THIS TIME. PT IS DENYING PAIN AT THIS TIME. ALL NEEDS MET AT THIS TIME.
[2021-11-17 20:00] VITALS: BP_SYST 152
--- NOTE | 2021-11-17 20:00 | NUR ---
pt.assessed.v/s assessed value wnl.no c/o pain,nausea.pt.apprised snacks/beverages are available w/in the shift. no requests posited@this hour.pt.resting viewing tv programming.call light/telephone w/in access of the pt.
--- NOTE | 2021-11-17 20:00 | NUR ---
PT EXPRESSED CONCERNS PT EXPRESSED CONCERNS ABOUT HAVING RESOURCES WHEN GOING HOME. PT SATED HE NEEDS A GLUCOMETER AND OTHER RESOURCES. PT FEARS HE WILL HAVE ISSUES WITH INSURANCE NOT PROVIDING RESOURCES. PT IS ALSO DISPLAYING A CONCERNING MENTAL STATE. PT HAS MATTED HAIR AND POOR HYGIENE. PT REPEATS STORIES ON HOW EVERYTHING IN HIS LIFE HAS GONE BAD. NURSE LISTENED TO PATIENT AND ENCOURAGED PT TO EXPRESS HIS FEELING. NURSE ALSO NOTED A CHANGE IN PTS DEMEANOR WHEN HIS "" CONSUELO WAS VISITING AND SUBSEQUENTLY ON THE PHONE WITH PT.
--- NOTE | 2021-11-17 21:00 | NUR ---
2100p medications administered,blood glucose assessed per jesus;[facility].
[2021-11-17] MEDS: ZOLPIDEM TARTRATE 5 MG TABLET PO PRN (21:26)
--- NOTE | 2021-11-17 22:00 | NUR ---
pt.assessed.pt.quiescent.resting.no c/o pain,nausea.no requests posited@this hour.pt.capable to reposition self.len light/ telephone w/in access of the pt.
[2021-11-18] VITALS: BP_SYST 134
--- NOTE | 2021-11-18 | NUR ---
pt.assessed.v/s assessed values wnl.i have administered morphine:2mg ivp;pre dsg change.pt had requested water,snacks provided.no additional requests posited@this hour.pt.capable to reposition self.call light/telephone w/in access of the pt.
[2021-11-18] MEDS: MORPHINE 2 MG/ML INJ. SYRINGE IVP PRN (00:13)
--- NOTE | 2021-11-18 01:10 | NUR ---
WOUND CARE PERFORMED DR MADRID DRAINED ABSCESS FURTHER, GETTING OUT ABOUT 50ML OF WHITE AND BLOODY PUS WOUND CARE PERFORMED PER SURGEONS ORDERS. PT MEDICATED FOR PROCEDURE
--- NOTE | 2021-11-18 02:00 | NUR ---
pt.assessed.pt.quiescent,resting.no c/o pain,nausea.s/p dsg change;back per jesus;rn procedure.pt.capable to reposition self. call light/telephone w/in access of the pt.
[2021-11-18] MEDS ORDERED: CEFAZOLIN 2 GM IVPB PREMIX 50 ML IV ONE (03:19)
--- NOTE | 2021-11-18 04:00 | NUR ---
pt.assessed.pt.quiescent;somnolent.per flacc pain mgx pt.absent facial grimaces/body posturing.iv access intact.pt.capable to reposition self.call light/telephone w/in access of the pt.
[2021-11-18] MEDS: ceFAZolin SODIUM 2 GM in D5W 100 ML IV SCH ×2 (05:01→12:40)
--- NOTE | 2021-11-18 06:19 | NUR ---
pt.assessed.no c/o pain,nausea.ancef;2gm inital dose per doseage administered 0600a dose.no requests posited@this hour.pt.capable to reposition self.call light/telephone w/in access of the pt.
[2021-11-18] MEDS: INSULIN NPH/REGULAR 70-30, 100 UNITS/ML, 3 ML VIAL SUBCUT SCH (06:47)
--- NOTE | 2021-11-18 07:00 | NUR ---
Report received from human resources trainer RN for continuity of care. Patient stable.
--- NOTE | 2021-11-18 07:31 | NUR ---
CLOSING NOTE PT IS LYING IN BED WITH GIRLFRIEND CONSUELO PRESENT. NO APPARENT DISTRESS NOTED AT THIS TIME. BED IN LOWEST POSITION WITH FALL AND SAFETY PRECAUTIONS IN PLACE. CALL LIGHT IS WITHIN REACH.
[2021-11-18 08:00] VITALS: BP_SYST 124
[2021-11-18] MEDS ORDERED: METF-380 PO (08:56)
[2021-11-18] MEDS ORDERED: GLYB5TAB7 PO (08:56)
[2021-11-18] MEDS ORDERED: SULF1TAB48 PO (08:56)
[2021-11-18] MEDS: HEPARIN SODIUM,PORCINE 5,000 UNITS/ML VIAL SUBCUT SCH (09:00)
[2021-11-18] MEDS: BALSAM PERU/CASTOR OIL 56.7 GM OINT...G. TP SCH (09:00)
[2021-11-18] MEDS ORDERED: LISI-652 PO (09:06)
[2021-11-18 11:47] VITALS: BP_SYST 138
[2021-11-18 12:00] VITALS: BP_SYST 124
[2021-11-18] MEDS: INSULIN REGULAR, HUMAN 100 UNITS/ML, 3 ML VIAL (humuLIN R) SUBCUT PRN (12:50)
[2021-11-18 13:38] VITALS: BP_SYST 124
--- NOTE | 2021-11-18 14:00 | NUR ---
Patient ready for discharge. All paperwork given. Wound care instructions given to patient's significant other. Medications e-scripted to pharmacy of choice. Paper prescription given to patient. Patient aware of follow up with primary care Dr. SRINIVASA hammond. Patient ambulatory with steady gait to personal vehicle.
--- NOTE | 2021-11-19 08:17 | NUR ---
Dispo code 01
== END 2021-11-18 14:05 | disposition home or self-care (01) | DRG 720 ==
LOC: SED 11:07 → SMU 16:00
PROVIDERS: ADMIT General Practice; ATTEND General Practice
DX: A41.9 Sepsis, unspecified organism (principal); N17.0 Acute kidney failure with tubular necrosis; E44.0 Moderate protein-calorie malnutrition; L02.212 Cutaneous abscess of back [any part, except buttock and flank]; E11.40 Type 2 diabetes mellitus with diabetic neuropathy, unspecified; E11.65 Type 2 diabetes mellitus with hyperglycemia; L03.312 Cellulitis of back [any part except buttock and flank]; Z20.822 Contact with and (suspected) exposure to COVID-19; Z91.14 Patient's other noncompliance with medication regimen; Z91.199 Patient's noncompliance with other medical treatment and regimen due to unspecified reason; Z68.29 Body mass index [BMI] 29.0-29.9, adult; Z79.899 Other long term (current) drug therapy
CPT/HCPCS: 36415; 80048; 80053; 80202; 80307; 82009; 82962; 83036; 83605; 83735; 85025; 85730-TC; 86140; 87040; 87070-TC; 87075-TC; 87186-TC; 96365; 96375; 99285; J0690; J1644; J1815; J2270; J2405; J2543; J3370; J7050; J7060